=== PATIENT | female | born 1965 | race Caucasian/White ===

== ENCOUNTER 2017-09-19 14:10 | Emergency (ER) | payer OTHER ==
[~2017-09-19] VITALS: Ht 160 cm; Wt 113.0 kg
[~2017-09-19 14:10] MED LIST: CPR/500 PO; METR500T PO; WARF5TAB90 PO
[2017-09-19 14:12] VITALS: Ht 160 cm; Wt 113.0 kg
[2017-09-19] MEDS ORDERED: SODIUM CHLORIDE 0.9% 1000ML 1,000 ML IV STA (14:33)
[2017-09-19] MEDS ORDERED: PROCHLORPERAZINE 5 MG/ML 2 ML VIAL IV STA (14:33)
[2017-09-19] MEDS ORDERED: KETOROLAC TROMETHAMINE 30 MG/ML VIAL IV STA (14:33)
[2017-09-19] MEDS ORDERED: DiphenhydrAMINE HCL 50 MG/ML VIAL IV STA (14:33)
--- NOTE | 2017-09-19 14:38 | EMERGENCY ROOM VISIT NOTE ---
History Report prepared by Radah: Sandy Khoury Under the Supervision of: Rosalio KamO. 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 She reports waking up with the headache and it is gradually getting worse. She currently rates her pain a 10/10 in severity. She notes this is not the worse headache of her life. She notes the headache is localized to the right side and base of her head. She notes this migraine is mostly dull, achy, though also stabbing. She states "it feels like there is a spear stuck in my head." She notes that light and movement makes the pain worse. She notes that noise does not worsen the pain. She notes mild neck pain. She has a history of ocular migraines. She notes that she has about one migraine a month for at least 10 years. She notes her normal migraines start in her eyes and work backwards. She notes this migraine started in the back of her head and is moving forward. She states her normal migraines are a stabbing pain. She has a history of blood clots. Pt denies change in vision, fevers, chest pain, shortness of breath, nausea, vomiting, diarrhea, pain with urination, and melena. Patient denies hypertension. 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 Review of Systems See HPI for pertinent positives & negatives. A total of 10 systems reviewed and were otherwise negative. Past Medical & Surgical Medical Problems: (1) History of DVT (deep vein thrombosis) (2) History of pulmonary embolism (3) Migraine (4) Warfarin anticoagulation Family History Patient reports no known family medical history. Social History Smoking Status: Never Smoker Alcohol Use: none Drug Use: none Marital Status: Housing Status: lives with significant other Occupation Status: other Current/Historical Medications Scheduled PRN Sumatriptan Succinate (Imitrex), 50 MG PO PRN PRN for Migraine Allergies Coded Allergies: Iodinated Diagnostic Agents (Verified Allergy, Severe, RASH, SOB, 09/19/17 ) Witnessed reaction in CT lab 02/10/2014 Sulfamethoxazole w/Trimethoprim (Verified Allergy, Severe, ANAPHALACTIC SHOCK, 09/19/17) Codeine (Verified Allergy, Intermediate, HIVES; PT TOLERATES DILAUDID, ) Latex1 -Allergic Contact Dermititis (Verified Allergy, Mild, RASH, ) Tetanus Toxoid (Verified Adverse Reaction, Unknown, HARD LUMP AT INJECTION SITE, 09/19/17) Physical Exam Vital Signs Date Time Temp Pulse Resp B/P (MAP) Pulse Ox O2 Delivery O2 Flow Rate FiO2 09/19/17 16:10 36.7 54 16 145/93 98 09/19/17 15:50 54 16 145/93 98 Room Air 09/19/17 14:12 36.7 80 16 193/103 98 Room Air Physical Exam GENERAL: Laying down in bed, alert, well appearing, well nourished, mild distress, non-toxic. Holding posterior occiput. EYE EXAM: normal conjunctiva, PERRLA. Extraocular muscles intact. OROPHARYNX: no exudate, no erythema, lips, buccal mucosa, and tongue normal and mucous membranes are moist NECK: supple, no nuchal rigidity, no adenopathy, non-tender LUNGS: Clear to auscultation. Normal chest wall mechanics HEART: no murmurs, S1 normal and S2 normal ABDOMEN: abdomen soft, non-tender, normo-active bowel sounds, no masses, no rebound or guarding. BACK: Back is symmetrical on inspection and there is no deformity, no midline tenderness, no CVA tenderness. SKIN: no rashes and no bruising UPPER EXTREMITIES: upper extremities are grossly normal. LOWER EXTREMITIES: No pitting edema. NEURO EXAM: Normal sensorium, cranial nerves II-XII intact, normal speech, no weakness of arms, no weakness of legs. No drift. Finger to nose intact. Gross sensation intact. Rapid alternating movement of upper extremities in tact. Medical Decision & Procedures ER Provider Diagnostic Interpretation: Radiology results as stated below per my review and the radiologist's interpretation: HEAD WITHOUT CONTRAST (CT) CLINICAL HISTORY: 51 years-old Female presenting with severe FOOTE. TECHNIQUE: Multidetector CT imaging of the head was performed without the use of intravenous contrast. IV contrast: None. A dose lowering technique was used consistent with the principles of ALARA (as low as reasonably achievable). COMPARISON: None. CT DOSE (mGy.cm): The estimated cumulative dose is 537.48 mGy.cm. FINDINGS: Supervisor Propellant Charge Loading topogram: Unremarkable. Ventricles and sulci normal in size. Brain parenchyma normal in appearance with preserved pierce-white differentiation. No mass effect or midline shift. No hemorrhage or acute territorial infarct. No extra-axial fluid collection. Paranasal sinuses and mastoid air cells clear. Calvarium intact. IMPRESSION: 1. No acute intracranial abnormality. Electronically signed by: Jose Brock M.D. 09/19/2017 3:08 PM Dictated Date/Time: 09/19/2017 3:05 PM Laboratory Results 09/19/17 14:55 Red Blood Count 5.02, Mean Corpuscular Volume 94.0, Mean Corpuscular Hemoglobin 32.7, Mean Corpuscular Hemoglobin Concent 34.7, Mean Platelet Volume 10.0, Neutrophils (%) (Auto) 74.7, Lymphocytes (%) (Auto) 17.8, Monocytes (%) (Auto) 5.5, Eosinophils (%) (Auto) 1.7, Basophils (%) (Auto) 0.2, Neutrophils # (Auto) 6.51, Lymphocytes # (Auto) 1.55, Monocytes # (Auto) 0.48, Eosinophils # (Auto) 0.15, Basophils # (Auto) 0.02 09/19/17 14:55 Test 09/19/17 14:55 White Blood Count 8.72 K/uL (4.8-10.8) Red Blood Count 5.02 M/uL (4.2-5.4) Hemoglobin 16.4 g/dL (12.0-16.0) Hematocrit 47.2 % (37-47) Mean Corpuscular Volume 94.0 fL (80-100) Mean Corpuscular Hemoglobin 32.7 pg (25-34) Mean Corpuscular Hemoglobin Concent 34.7 g/dl (32-36) Platelet Count 319 K/uL (130-400) Mean Platelet Volume 10.0 fL (7.4-10.4) Neutrophils (%) (Auto) 74.7 % Lymphocytes (%) (Auto) 17.8 % Monocytes (%) (Auto) 5.5 % Eosinophils (%) (Auto) 1.7 % Basophils (%) (Auto) 0.2 % Neutrophils # (Auto) 6.51 K/uL (1.4-6.5) Lymphocytes # (Auto) 1.55 K/uL (1.2-3.4) Monocytes # (Auto) 0.48 K/uL (0.11-0.59) Eosinophils # (Auto) 0.15 K/uL (0-0.5) Basophils # (Auto) 0.02 K/uL (0-0.2) RDW Standard Deviation 43.9 fL (36.4-46.3) RDW Coefficient of Variation 12.8 % (11.5-14.5) Immature Granulocyte % (Auto) 0.1 % Immature Granulocyte # (Auto) 0.01 K/uL (0.00-0.02) Anion Gap 4.0 mmol/L (3-11) Est Creatinine Clear Calc Drug Dose 121.1 ml/min Estimated GFR () 119.0 Estimated GFR (Non- 102.7 BUN/Creatinine Ratio 15.6 (10-20) Calcium Level 8.8 mg/dl (8.5-10.1) Laboratory results per my review. Medications Administered Medications (Trade) Dose Ordered Sig/Zaynab Route Start Time Stop Time Status Last Admin Dose Admin Diphenhydramine HCl (Benadryl Inj) 50 mg NOW STAT IV 09/19/17 14:33 09/19/17 14:34 DC 09/19/17 14:45 50 MG Ketorolac Tromethamine (Toradol Inj) 30 mg NOW STAT IV 09/19/17 14:33 09/19/17 14:34 DC 09/19/17 14:45 30 MG Prochlorperazine Edisylate (Compazine Inj) 10 mg NOW STAT IV 09/19/17 14:33 09/19/17 14:34 DC 09/19/17 14:45 10 MG Sodium Chloride 1,000 ml @ 999 mls/hr Q1H1M STAT IV 09/19/17 14:33 09/19/17 15:33 DC 09/19/17 14:33 999 MLS/HR ED Course ED COURSE: Vital signs were reviewed and showed hypertensive The patients medical record was reviewed The above diagnostic studies were performed and reviewed. ED treatments and interventions as stated above. 1426: The patient was evaluated in room B12A. A complete history and physical examination was performed. 1433: Ordered Sodium Chloride 1,000 ml @ 999 mls/hr IV, Compazine 10 mg IV, Toradol 30 mg, and Benadryl 50 mg IV 1451 I reassessed the patient at this time. She is resting comfortably. 1525 I reassessed the patient at this time. She is resting comfortably. 1537: Upon reevaluation, the patient is feeling better, her headache is near relieved. I did offer LP and she declined. Risk of benefits were explained. She will follow up with her PCP. I discussed my findings with the patient and she understands and agrees with the treatment plan. Based on the patients age, coexisting illnesses, exam and lab findings the decision to treat as an outpatient was made. The patient remained stable while under my care. The patient appeared well at the time of discharge. Medical Decision Differential Diagnosis includes but is not limited to headache, tension headache , cluster headache, migraine, subarachnoid hemorrhage, meningitis, mass, central venous thrombus, concussion, trauma and epidural/subdural hemorrhage. Patient is a 51-year-old female who presents to ER for headache which started around 7 AM. It started to gradually worsened throughout the day. She has no focal deficit. It is located in the back of her head. She does have a history of migraines. No fevers. Neck stiffness. No signs meningitis or encephalitis on exam. No recent trauma. Patient is completely neurologically intact including cerebellar exam. She did walk without difficulty. CT head was performed and was completely negative. This was out of the 6 hour window. I explained this to the patient and she noted that this was a very bad headache. Recommended LP due to the her description of the headache but she declined. I explained at length the benefits and risks of not performing this. We're unable to perform a CTA due to her contrast allergy. Patient felt significantly better following the IV Benadryl, Toradol and Compazine. She was given fluids. I explained that this does not negate the possibility of a subarachnoid hemorrhage. She understood the risk and benefits. She was fairly hypertensive upon presentation I believe this to be secondary to her pain. Blood pressure did come down with treatment of her pain to 160 systolic. She was discharged to follow-up with her PCP and to return if anything worsens. Discussed with Pt concerning signs and symptoms to watch out for. Pt was instructed to follow up with their PCP and discussed with the patient their option to return to the ED at anytime for persistent or worsening symptoms. The appropriate anticipatory guidance and out-patient management, including indications for return to the emergency department, were explained at length to the patient and understood. Medication Reconcilliation Current Medication List: was personally reviewed by me Blood Pressure Screening Patient's blood pressure: Elevated blood pressure Blood pressure disposition: Referred to PCP Impression Primary Impression: Cephalalgia Additional Impression: Hypertension Scribe Attestation The scribe's documentation has been prepared under my direction and personally reviewed by me in its entirety. I confirm that the note above accurately reflects all work, treatment, procedures, and medical decision making performed by me. Departure Information Dispostion Home / Self-Care Forms HOME CARE DOCUMENTATION FORM, IMPORTANT VISIT INFORMATION Patient Instructions Headache Pain, My [facility] Additional Instructions Please follow up with your primary care doctor with in the next 24 hours. Any worsening of your symptoms, please return to the ED immediately. This includes any fevers greater than 100.4, stiff neck, weakness or numbness in arms or legs , worsening pain, chest pain, shortness breath, persistent nausea, vomiting, unable to eat or drink, or any other concerning signs or symptoms from your standpoint. You were given medications during this visit that will inhibit your ability to drive, operate machinery and work. Please do NOT drive, operate machinery, drink alcohol or work for the next 12hrs. You were found to have a blood pressure greater than 120 systolic over 90 diastolic. Due to the new Medicare guidelines, we are now recommending that you follow up with your primary care doctor in regards to this elevated blood pressure. Problem Qualifiers Primary Impression: Cephalalgia Headache type: unspecified Headache chronicity pattern: unspecified pattern Intractability: not intractable Qualified Codes: R51 - Headache Additional Impression: Hypertension Hypertension type: unspecified Qualified Codes: I10 - Essential (primary) hypertension
[2017-09-19] MEDS ORDERED: SUMA50TA15 PO (15:02)
[2017-09-19 15:06] LABS: BASO % 0.2 %; BASO ABS # 0.02 K/uL (0-0.2); EOS % 1.7 %; EOS ABS # 0.15 K/uL (0-0.5); HEMATOCRIT 47.2 % (37-47); HEMOGLOBIN 16.4 g/dL (12.0-16.0); IG# 0.01 K/uL (0.00-0.02); LYMPH % 17.8 %; LYMPH ABS # 1.55 K/uL (1.2-3.4); MEAN CORPUSCULAR HEMOGLOBIN 32.7 pg (25-34); MEAN CORPUSCULAR HGB CONC 34.7 g/dl (32-36); MONO % 5.5 %; MONO ABS # 0.48 K/uL (0.11-0.59); NEUT % 74.7 %; NEUT ABS # 6.51 K/uL (1.4-6.5); PLATELET COUNT 319 K/uL (130-400); RED CELL DISTRIBUTION WIDTH CV 12.8 % (11.5-14.5); RED CELL DISTRIBUTION WIDTH SD 43.9 fL (36.4-46.3); WHITE BLOOD COUNT 8.72 K/uL (4.8-10.8)
--- NOTE | 2017-09-19 15:09 | DIAGNOSTIC IMAGING REPORT ---
HEAD WITHOUT CONTRAST (CT) CLINICAL HISTORY: 51 years-old Female presenting with severe FOOTE. TECHNIQUE: Multidetector CT imaging of the head was performed without the use of intravenous contrast. IV contrast: None. A dose lowering technique was used consistent with the principles of ALARA (as low as reasonably achievable). COMPARISON: None. CT DOSE (mGy.cm): The estimated cumulative dose is 537.48 mGy.cm. FINDINGS: Web Developer topogram: Unremarkable. Ventricles and sulci normal in size. Brain parenchyma normal in appearance with preserved pierce-white differentiation. No mass effect or midline shift. No hemorrhage or acute territorial infarct. No extra-axial fluid collection. Paranasal sinuses and mastoid air cells clear. Calvarium intact. IMPRESSION: 1. No acute intracranial abnormality. Electronically signed by: Jose Brock M.D. 09/19/2017 3:08 PM Dictated Date/Time: 09/19/2017 3:05 PM
[2017-09-19 15:23] LABS: CALCIUM 8.8 mg/dl (8.5-10.1); CREATININE 0.68 mg/dl (0.60-1.20); POTASSIUM 3.7 mmol/L (3.5-5.1)
[2017-09-19 16:10] VITALS: BP 145/93; PULSE 54; TEMP 36.7; O2SAT 98
[2018-02-20] MEDS ORDERED: IBUP-1050 PO (23:59)
[2018-02-21] MEDS ORDERED: CEPH500C PO (01:50)
[2018-04-15] MEDS ORDERED: ACET-176 PO (07:54)
[2018-04-15] MEDS ORDERED: SUMA50TA15 PO (09:22)
[2018-04-15] MEDS ORDERED: DOXY-300 PO (11:57)
== END 2017-09-19 16:00 | disposition home or self-care (01) ==
LOC: C.EDB 14:11
DX: R51 Headache (principal); I10 Essential (primary) hypertension; Z86.711 Personal history of pulmonary embolism; Z86.718 Personal history of other venous thrombosis and embolism

== ENCOUNTER 2018-02-11 23:00 | Emergency (ER) | payer OTHER ==
[~2018-02-11] VITALS: Ht 160 cm; Wt 116.3 kg
[~2018-02-11 23:00] MED LIST changes: -CPR/500 PO; -METR500T PO; +SUMA50TA15 PO; -WARF5TAB90 PO
[2018-02-11 23:04] VITALS: TEMP 36.6; Ht 160 cm; Wt 116.3 kg
[2018-02-11] MEDS ORDERED: ASPI81TA28 PO (23:24)
[2018-02-12 00:30] VITALS: BP 154/94; PULSE 90; O2SAT 98
--- NOTE | 2018-02-12 00:32 | EMERGENCY ROOM VISIT NOTE ---
History First contact with patient: 23:07 Chief Complaint: LEG PAIN,LEG INJURY Stated Complaint: RIGHT LEG INJURY History of Present Illness The patient is a 52 year old female who presents to the Emergency Room via private vehicle with complaints of "right leg injury". The patient states that this past Friday she accidentally tripped and fell and a heavy powerpack struck her right lateral proximal ricci. She notes minimal pain but now she has swelling and bruising distally. She notes now the skin is oozing a yellowish clear fluid. She rates the pain as a 5/10. She notes no numbness or tingling. Review of Systems A complete 6-point Review of Systems was discussed with the patient, with pertinent positives and negatives listed in the History of Present Illness. All remaining Review of Systems questions can be considered negative unless otherwise specified. Past Medical/Surgical History Medical Problems: (1) History of DVT (deep vein thrombosis) (2) History of pulmonary embolism (3) Migraine (4) Warfarin anticoagulation Family History Patient reports no known family medical history. Social History Smoking Status: Never Smoker Alcohol Use: none Drug Use: none Marital Status: Housing Status: lives with significant other Occupation Status: other Current/Historical Medications Scheduled Aspirin (Aspirin Ec), 81 MG PO DAILY Scheduled PRN Sumatriptan Succinate (Imitrex), 50 MG PO PRN PRN for Migraine Physical Exam Vital Signs Date Time Temp Pulse Resp B/P (MAP) Pulse Ox O2 Delivery O2 Flow Rate FiO2 02/12/18 00:30 90 16 154/94 98 Room Air 02/11/18 23:55 94 18 168/111 97 Room Air 02/11/18 23:04 36.6 93 18 174/95 98 Room Air Physical Exam VITAL SIGNS - Vital signs and nursing notes were reviewed. Stable. Hypertensive. GENERAL -52-year-old female appearing her stated age who is in no acute distress. Communicates well with provider and answers questions appropriately. SKIN -the right lower extremity does exhibit edema, as well as some serous fluid leaking. There is no break in the integument acutely noted. There is a well-healed abrasion noted to the right proximal lateral calf. There is ecchymosis from the distal ricci extending into the foot. It is dark and purple in nature. EXTREMITIES - No clubbing or peripheral cyanosis. Pretibial edema is present bilaterally, right greater than left. She is neurovascularly intact in right lower extremity. No bony tenderness noted. Medical Decision & Procedures ER Provider Diagnostic Interpretation: Tibia and fibula radiographs is read by myself reveal a small radiopaque object in the right lateral calf. Bones appear intact, joint spacing appropriate, no fracture or dislocation. Ultrasound of the right lower extremity obtained and as per stat rad reveals no evidence for deep venous thrombosis involving the right lower extremity. No other abnormality identified. Medical Decision Patient was seen and evaluated as above in room A2. Review was performed of nursing notes and vital signs. After obtaining a thorough history and physical examination the above work up was performed. She presents to us today with right lower extremity swelling status post injury. I suspect that because she has been on her feet for the past few days for long periods of time and with her recent injury she is experiencing dependent edema. The serous drainage I suspect is because of the amount of pressure on the leg from the swelling from standing and venous insufficiency. There is no evidence of compartment syndrome on exam. The radiopaque substance found on the x-ray I suspect is chronic and the patient notes that this is indeed old. She had surgery to try to remove most of this and some of it was also removed during an MRI. This is not acute. The x-ray does not reveal any acute injury. Ultrasound negative for DVT. She was given an Tony wrap and is to use her compression stocking as well after the next few days past with the Tony wrap. She is to follow with the family doctor or return with worsening. She was incidentally noted to have hypertension here but does not have any chest pain or shortness of breath or strokelike symptoms. She is to monitor this and follow with the family doctor as soon as possible. The patient was educated upon management, had questions answered prior to discharge, and was discharged home in good condition. In the evaluation and treatment of this patient the following differential diagnoses were entertained: Fracture, dislocation, DVT, hematoma, compartment syndrome, among others. Impression Primary Impression: Leg pain, right Departure Information Dispostion Home / Self-Care Condition GOOD Referrals Ishaan Singleton M.D. (PCP) Patient Instructions My [facility] Additional Instructions You were seen in the emergency department for right leg swelling. At this time your x-ray does not show any fracture/broken bone and the ultrasound does not show any blood clot. Please elevate the right leg as much as possible. Please apply the Tony wrap daily, please be careful not to apply this to type. Please do this for the next few days. You may then progress to a compression stocking. Please call the family doctor to schedule follow-up for your leg swelling as well as your blood pressure. Please return with any new/concerning symptoms.
--- NOTE | 2018-02-12 06:49 | DIAGNOSTIC IMAGING REPORT ---
RIGHT LOWER EXTREMITY VENOUS DOPPLER CLINICAL HISTORY: RLE injury. Now edema, drainage, bruising, Hx DVT COMPARISON STUDY: Right lower extremity venous Doppler June 05, 2011. TECHNIQUE: Sonography of the deep venous system of the right lower extremity was performed. Compression and augmentation were evaluated. FINDINGS: The right common femoral, superficial femoral and popliteal veins were compressible. Augmentation was normal. Flow was shown within the deep calf vessels. IMPRESSION: No evidence of deep venous thrombus within the right lower extremity. Electronically signed by: Jose Manuel Hardy M.D. 02/12/2018 6:48 AM Dictated Date/Time: 02/12/2018 6:47 AM
--- NOTE | 2018-02-12 07:05 | DIAGNOSTIC IMAGING REPORT ---
R TIBIA/FIBULA 2 VIEWS ROUTINE CLINICAL HISTORY: RLE injury. Now edema, drainage, bruising. COMPARISON: None FINDINGS: No fracture of the right tibia or fibula is identified. There is no evidence of osteomyelitis. Note is made of 3 adjacent linear radiopaque densities within the anterior lateral subcutaneous tissues of the right lower leg which measure up to 3 mm. IMPRESSION: 1. No osseous abnormality of the right tibia or fibula. 2. 3 adjacent linear radiopaque densities within the anterolateral subcutaneous tissues of the right lower leg. These are nonspecific but may reflect tiny foreign bodies. Electronically signed by: Jose Manuel Hardy M.D. 02/12/2018 7:04 AM Dictated Date/Time: 02/12/2018 6:55 AM
== END 2018-02-12 00:50 | disposition home or self-care (01) ==
LOC: C.EDB 23:02 → C.EDA 02-12 00:50
DX: S80.811A Abrasion, right lower leg, initial encounter (principal); W18.09XA Striking against other object with subsequent fall, initial encounter; Z86.718 Personal history of other venous thrombosis and embolism; Z86.711 Personal history of pulmonary embolism; Z79.82 Long term (current) use of aspirin

== ENCOUNTER → 2018-05-07 | Outpatient (CLI) | payer OTHER ==
[~2018-05-07] MED LIST changes: +ACET-176 PO; +ASPI81TA28 PO; +DOXY-300 PO; +IBUP-1050 PO
--- NOTE | 2018-05-07 12:18 | DIAGNOSTIC IMAGING REPORT ---
R VENOUS DOPP LOWER EXT UNILAT CLINICAL HISTORY: 52 years-old Female presenting with LEG SWELLING. TECHNIQUE: Real-time grayscale and color and spectral Doppler ultrasound imaging of the veins of the right lower extremity was performed. Compression and augmentation were also utilized. COMPARISON: 02/11/2018. FINDINGS: RIGHT: Common femoral vein: Patent. Greater saphenous vein: Patent. Deep femoral vein: Patent. Femoral vein: Patent. Popliteal vein: Patent. Calf veins: Patent. Other: None. IMPRESSION: No evidence of deep venous thrombosis. Electronically signed by: Jose Brock M.D. 05/07/2018 12:17 PM Dictated Date/Time: 05/07/2018 12:16 PM
[2018-05-07 13:03] LABS: BASO % 0.4 %; BASO ABS # 0.03 K/uL (0-0.2); EOS % 2.5 %; EOS ABS # 0.17 K/uL (0-0.5); HEMATOCRIT 44.3 % (37-47); HEMOGLOBIN 14.6 g/dL (12.0-16.0); IG# 0.02 K/uL (0.00-0.02); LYMPH % 24.9 %; LYMPH ABS # 1.72 K/uL (1.2-3.4); MEAN CELL VOLUME 96.7 fL (80-100); MEAN CORPUSCULAR HEMOGLOBIN 31.9 pg (25-34); MEAN PLATELET VOLUME 10.5 fL (7.4-10.4); MONO % 6.5 %; MONO ABS # 0.45 K/uL (0.11-0.59); NEUT % 65.4 %; NEUT ABS # 4.53 K/uL (1.4-6.5); PLATELET COUNT 315 K/uL (130-400); RED CELL DISTRIBUTION WIDTH CV 13.6 % (11.5-14.5); RED CELL DISTRIBUTION WIDTH SD 48.1 fL (36.4-46.3); WHITE BLOOD COUNT 6.92 K/uL (4.8-10.8)
[2018-05-07 13:15] LABS: BLOOD UREA NITROGEN 11 mg/dl (7-18); CALCIUM 8.4 mg/dl (8.5-10.1); CARBON DIOXIDE 28 mmol/L (21-32); CREATININE 0.63 mg/dl (0.60-1.20); GLUCOSE 97 mg/dl (70-99); POTASSIUM 4.3 mmol/L (3.5-5.1); SODIUM 139 mmol/L (136-145)
[2018-05-07 13:16] LABS: HEMOGLOBIN A1C 5.6 % (4.5-5.6)
== END | disposition home or self-care (01) ==
LOC: C.ULTR 11:22
PROVIDERS: ATTEND Family Medicine
DX: M79.89 Other specified soft tissue disorders (principal); Z86.718 Personal history of other venous thrombosis and embolism

== ENCOUNTER 2025-06-22 13:53 | Inpatient (IN) ==
[2025-06-22 14:42] LABS: Hematocrit (blood only) 44.0 % (37.0-47.0); Hemoglobin 14.4 g/dl (12.0-16.0); Immature Granulocytes # (auto) 0.03 K/uL (0.01-0.20); Immature Granulocytes % (auto) 0.3 %; Mean Corpuscular Hemoglobin 31.5 pg (25.0-34.0); Mean Corpuscular Volume 96.3 fL (80.0-100.0); Platelet Count 273 K/uL (130-400); RDW Standard Deviation 46.8 fL (36.4-46.3); Red Blood Count 4.57 M/uL (4.20-5.40); White Blood Count 11.23 K/ul (4.8-10.8)
--- NOTE | 2025-06-22 14:42 | Emergency Department Note ---
Impression & Plan Substernal chest pain, Hypertension, uncontrolled, Subtherapeutic international normalized ratio (INR) Admit to the [facility] ED Provider Note NAME: ADRIANA VALDES AGE: 59 SEX: Female INFORMANT: Patient ED PROVIDER(S): Wanda Chen DO CHIEF COMPLAINT: Chest pressure PLAN: Disposition: admit to the [facility] MEDICAL DECISION MAKING: This is a 59-year-old female patient with history of hypertension who presents to the emergency department with increasing chest pressure. Patient described elevated blood pressure over the past couple of days thought to be secondary to injections of prednisone. This morning, the patient developed difficulty with speech, tremors and chest pressure around 9 AM this morning. The chest pressure worsened and EMS was called. They administered sublingual nitroglycerin which brought the chest pressure down. They also gave a dose of morphine and Zofran. on my exam of the patient, stated that the chest pressure had come back and she was rating it as a 4/10. She was still significantly hypertensive with blood pressure reading of 187/97. Patient was given another dose of sublingual nitro and had 1 inch of Nitropaste placed. The patient's EKG was unremarkable. She continued to have chest pressure and was given a dose of IV morphine in the emergency department. Portable chest x-ray was performed and was unremarkable. Laboratory studies revealed no leukocytosis or anemia. Glucose was 100. Troponin was negative. INR was subtherapeutic at 1.6. Patient describes not taking any antihypertensives at this time. She will require further inpatient care and monitoring. The case was discussed with the [facility] Hospitalist. Triage Nursing notes: reviewed and agree With them. Vital Signs: reviewed and remarkable for hypertension Additional History obtained from: is at the bedside Chronic Medical/Social Conditions affecting care: hypertension Differential Diagnosis: hypertensive urgency, cardiac ischemia, GERD, cardiac arrhythmia Diagnostics, independently interpreted by me: ECG: normal sinus rhythm at a rate of [address] segment elevation or signs of ischemia. There is no ectopy. Cardiac Monitoring: Normal sinus rhythm at a rate of 86 Imaging studies: portable chest x-ray: No acute pulmonary infiltrates or consolidation as per my independent interpretation HPI: 59 year old Female arrives for evaluation of Chest pressure. Patient has a history of hypertension and presents to the emergency department with increasing chest pressure since 9 AM this morning. Patient's describes that earlier today she seemed to have some difficulty with her speech and some tremors but this has subsided. PAST MEDICAL HISTORY: See Below, PAST SURGICAL HISTORY: See Below, SOCIAL HISTORY: See Below, HOME MEDICATIONS: see list ALLERGIES: see list VITALS: See Below PHYSICAL EXAMINATION: HEENT: Head - normocephalic and atraumatic. Pupils are equal, round, and reactive to light. Extraocular eye muscles are intact and sclera are anicteric. Nose - moist nasal mucosa without discharge. Mouth - moist buccal mucosa. Oropharynx is nonerythematous and there is no tonsillar exudate or edema noted. Neck: Supple; no JVD, nuchal rigidity, cervical lymphadenopathy. Heart: Regular rate and rhythm. There is a normal S1 and S2 with no murmurs, clicks, or gallops appreciated. Lungs: Clear to auscultation bilaterally with no wheezes, rales, or rhonchi. Abdomen: Soft, completely nontender, nondistended, with good bowel sounds. There are no palpable pulsatile masses or hepatosplenomegaly. There is no guarding, rigidity, or rebound noted. Extremities: No evidence of cyanosis, clubbing, or edema. There are easily palpable peripheral pulses. Neuro:The patient is awake and alert, oriented to day, time, and place. Muscle strength is 5/5 in all 4 extremities. The patient has equal tube handler strength and equal pedal push and pull. There are no cerebellar signs. Cranial nerves II through XII are grossly intact. Emergency department course: Patient was evaluated in room A-4-B. A complete history and physical was performed. An order was placed for continuous cardiac monitoring. The patient was in a normal sinus rhythm at a rate of 86. Twelve- lead EKG was obtained as described above. Portable chest x-ray was performed. The patient was given a dose of sublingual nitro and had Nitropaste placed in an effort to treat her chest pressure and control her blood pressure. Patient's chest pressure continued. She was given a dose of IV morphine. Blood pressure did start to come down throughout the stay in the emergency department. I discussed the case with the [facility] Hospitalist and they will evaluate for further inpatient care. Past Med/Surg History Problem List (Updated 06/23/25 @ 20:25 by Wanda A Botti, DO) Subtherapeutic international normalized ratio (INR) (Acute) Hypertension, uncontrolled (Acute) Substernal chest pain (Acute) Chest pressure Partial tear of right rotator cuff Tendinopathy of right rotator cuff Rheumatoid arthritis Fibromyalgia Celiac disease Hypothyroidism Prediabetes Mild mitral regurgitation Arthritis of both knees Thoracic back pain Lipodermatosclerosis of right lower extremity Morbid obesity Chronic venous insufficiency Obesity (Chronic) Disordered sleep Cervical spine disease Medial meniscus tear Anticoagulant long-term use Hypertension Vitamin D deficiency Acute superficial venous thrombosis of right lower extremity (09/2021) 09/2021, f/u Michele Mckeon On Coumadin Venous reflux Tinnitus of both ears Varicose veins of legs Asthma uses an inhaler prn Chronic rhinitis Migraine History of pulmonary embolism (~2010) Hx of recurrent right lower extremity thrombophlebitis and hx of PE (2010) per heme records Follows with Michele Mckeon On Coumadin in 2010 x 6 months and then d/c'ed- superficial venous thrombosis 09/2021- restarted on Coumadin History of DVT (deep vein thrombosis) (~2010) "2010"; f/u Michele Mckeon Medical History Dysphagia Neck mass Dysphonia Esophageal dilatation Vertigo History of anesthesia reaction History of COVID-19 Pneumonia due to COVID-19 virus Lyme disease Surgical History S/P excision of lipoma (03/2022) Hx of colonoscopy Hx of endoscopic retrograde cholangiopancreatography Hx of laparoscopy H/O ovarian cystectomy S/P cholecystectomy Family History Mother Coronary heart disease Hypertension Father Diabetes Brother Diabetes Denies family history of Ovarian cancer Prostate cancer Myocardial infarction Breast cancer Lung cancer Colorectal cancer Social History Smoking Status: Never smoker Second Hand Exposure: No; Do You Dip or Chew Tobacco: No; Hx Alcohol Use: Yes Alcohol type: hard liquor Alcohol Intake Frequency: Monthly or Less Hx Substance Use: No Preferred Language: Montenegrin Communication Ability: Effective Visual Impairment: Limited Hearing Ability: Normal Cassandra Developer Required: No Beliefs That Will Affect Care: None marital status: Single Current Living Situation: Significant Other Current Living Situation Comment: Lives with significant other. 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; Feels Safe at Home: Yes Childhood Exposure to Second-Hand Smoke: No Diet: regular Diet Comment: regular caffeine: No during the past year weight has: remained stable Dental Care, Regularly: No Physical Activity Frequency: Does not Exercise Seatbelt Use: sometimes Sunscreen Use: Yes Assistive Devices: Cane and Scooter/Electric Scooter Allergies Allergies Allergy/AdvReac Type Severity Reaction Status Date / Time Iodinated Contrast Media Allergy Severe RASH, SOB Verified 06/15/25 16:41 sulfamethoxazole Allergy Severe ANAPHALACTIC Verified 06/15/25 16:41 SHOCK trimethoprim Allergy Severe ANAPHALACTIC Verified 06/15/25 16:41 SHOCK codeine Allergy Intermediate HIVES; PT Verified 06/15/25 16:41 TOLERATES DILAUDID latex Allergy Mild RASH Verified 06/15/25 16:41 sumatriptan [From Imitrex] Allergy Mild scratchy Verified 06/15/25 16:41 throat lisinopril AdvReac Mild Cough Verified 06/15/25 16:41 tetanus toxoid, adsorbed AdvReac Unknown HARD LUMP Verified 06/15/25 16:41 AT INJECTION SITE losartan AdvReac Severe Dizziness Uncoded 06/15/25 16:41 Home Meds Home Medications Medication Instructions Recorded Confirmed multivitamin 1 tab PO QAM 08/09/22 06/22/25 potassium chloride 10 mEq 10 meq PO .every other day PRN 10/01/23 06/22/25 capsule,extended release WATER RETENTION hydroxychloroquine 200 mg tablet 400 mg PO DAILY 12/07/24 06/22/25 (Plaquenil) warfarin 5 mg tablet 5 mg PO DIRECTED 06/22/25 06/22/25 warfarin 7.5 mg tablet 7.5 mg PO DIRECTED 06/22/25 06/22/25 Previous Rx's Medication Instructions Recorded cholecalciferol (vitamin D3) 50 5,000 mcg (100 x 50 mcg (2,000 12/04/23 mcg (2,000 unit) capsule unit)) PO DAILY #30 caps albuterol sulfate 2.5 mg/3 mL 2.5 mg (3 mL) inhalation QAM PRN 10/15/24 (0.083 %) solution for nebulization Shortness Of Breath #90 mL albuterol sulfate 90 mcg/actuation 1 - 2 inh inhalation UD PRN 07/06/24 aerosol inhaler (Ventolin HFA) Shortness Of Breath #8.5 grams furosemide 20 mg tablet 20 mg PO DAILY PRN Fluid Retention 12/23/24 #90 tabs aspirin 81 mg tablet,delayed 81 mg PO DAILY #30 tabs 06/23/25 release atorvastatin 20 mg tablet 20 mg PO HS #30 tabs 06/23/25 nifedipine 30 mg tablet,extended 30 mg PO QPM #30 tabs 06/23/25 release 24 hr (Procardia XL) Results & Data (ED) Vital Signs Vital Signs - 24 hr 06/22/25 14:10 06/22/25 14:12 06/22/25 14:12 Temperature 36.6 C Temperature Source Oral Pulse Rate 88 86 Respiratory Rate 23 Respiratory Effort / Characteristics Non-Labored Spontaneous Respiratory Depth Normal Blood Pressure 187/97 H Blood Pressure Mean 127 Blood Pressure Position Semi-fowlers Pulse Oximetry 97 97 Oxygen Delivery Method Room Air Room Air Sepsis Recent Fever Within 48 Hours No Sepsis New/Unexplained Change in Mental Status N/A Sepsis Action Taken by Nursing No Action Required 06/22/25 14:34 Temperature Temperature Source Pulse Rate Respiratory Rate Respiratory Effort / Characteristics Respiratory Depth Blood Pressure Blood Pressure Mean Blood Pressure Position Pulse Oximetry 97 Oxygen Delivery Method Room Air Sepsis Recent Fever Within 48 Hours Sepsis New/Unexplained Change in Mental Status Sepsis Action Taken by Nursing Laboratory Data 06/23/25 08:11 06/23/25 08:11 Lab Results 06/22/25 Range/Units 14:18 WBC 11.23 H (4.8-10.8) K/ul RBC 4.57 (4.20-5.40) M/uL Hgb 14.4 (12.0-16.0) g/dl Hct 44.0 (37.0-47.0) % MCV 96.3 (80.0-100.0) fL MCH 31.5 (25.0-34.0) pg MCHC 32.7 (32.0-36.0) g/dL RDW Std Deviation 46.8 H (36.4-46.3) fL RDW Coeff of Ramon 13.1 (11.5-14.5) % Plt Count 273 (130-400) K/uL MPV 9.5 (9.4-12.4) fL Immature Gran % (Auto) 0.3 % Neut % (Auto) 74.4 % Lymph % (Auto) 16.4 % Mclennan % (Auto) 7.4 % Eos % (Auto) 1.1 % Baso % (Auto) 0.4 % Neut # (Auto) 8.36 H (1.40-6.50) K/uL Lymph # (Auto) 1.84 (1.20-3.40) K/uL Mclennan # (Auto) 0.83 H (0.11-0.59) K/uL Eos # (Auto) 0.12 (0.00-0.50) K/uL Baso # (Auto) 0.05 (0.00-0.20) K/uL Immature Gran # (Auto) 0.03 (0.01-0.20) K/uL PT 16.0 H (9.0-12.0) Seconds INR 1.6 H (0.9-1.1) Sodium 136 (136-145) mmol/L Potassium 3.7 (3.5-5.1) mmol/L Chloride 102 (98-107) mmol/L Carbon Dioxide 27 (21-32) mmol/L Anion Gap 7 (3-11) BUN 17 (6-23) mg/dl Creatinine 0.78 (0.6-1.2) mg/dl Est Cr Clr Drug Dosing 104.7 ml/min eGFR 88.53 BUN/Creatinine Ratio 21.8 H (10-20) Glucose 100 H (70-99(Fasting)) mg/dl Calcium 8.8 (8.6-10.3) mg/dl Total Bilirubin 0.5 (0.2-1.0) mg/dl AST 17 (13-39) U/L ALT 21 (7-52) U/L Alkaline Phosphatase 77 (34-104) U/L Troponin I High Sens 4.6 (0-14) pg/ml Total Protein 7.0 (6.0-8.3) gm/dl Albumin 3.7 (3.4-5.0) gm/dl Globulin 3.3 (2.5-4.0) gm/dl Albumin/Globulin Ratio 1.1 (0.9-2) Lipase 21 (11-82) U/L Administered Medications Discontinued Medications Aspirin (Aspirin 81 Mg Ectab) 81 mg PO DAILY [facility] Stop: 07/23/25 08:59 Last Admin: 06/23/25 07:35 Dose: 81 mg Documented By: WILLIAM Aspirin (Aspirin 81 Mg Ectab) 81 mg PO ONE ONE Stop: 06/22/25 18:16 Last Admin: 06/22/25 18:20 Dose: 81 mg Documented By: STEFFI Hydroxychloroquine Sulfate (Hydroxychloroquine Sulfate 200 Mg Tab) 400 mg PO DAILY JOVI Stop: 07/23/25 08:59 Last Admin: 06/23/25 07:35 Dose: 400 mg Documented By: WILLIAM Morphine Sulfate (Morphine Sulfate 2 Mg/Ml Carp) 2 mg IV NOW STA Stop: 06/22/25 15:35 Last Admin: 06/22/25 16:09 Dose: 2 mg Documented By: STEFFI Nifedipine (Nifedipine Extended Rel 30 Mg Tabcr) 30 mg PO 1800 [facility] Stop: 06/22/25 19:00 Last Admin: 06/22/25 18:21 Dose: 30 mg Documented By: STEFFI Nitroglycerin (Nitroglycerin Sl 0.4 Mg/Tab Tab) 0.4 mg SL NOW STA Stop: 06/22/25 14:37 Last Admin: 06/22/25 14:46 Dose: 0.4 mg Documented By: SURESH Nitroglycerin (Nitroglycerin 2% Ointment 30gm Tube) 1 inch EXT NOW ONE Stop: 06/22/25 14:37 Last Admin: 06/22/25 14:46 Dose: 1 inch Documented By: QGV Warfarin Sodium (Warfarin Sod 5 Mg Tab) 5 mg PO SuMoTuThFr@1600 [facility] Stop: 07/22/25 23:44 Last Admin: 06/23/25 17:22 Dose: 5 mg Documented By: Admin: 06/23/25 00:21 Dose: Not Given Documented By: BRIDGER Discharge Plan Visit Data Chief Complaint: Chest Pain Stated Complaint: CHEST PAIN ED Provider: Wanda Chen Discharge Problem: Substernal chest pain, Hypertension, uncontrolled, Subtherapeutic international normalized ratio (INR) Patient Disposition: Admitted As Inpatient Condition: Serious Discharge Instructions Interventions: ED Discharge Assessment Last Done: 06/22/25 21:59
--- NOTE | 2025-06-22 14:44 | XRay Report ---
XR chest 1V portable CLINICAL HISTORY: Chest pain, nonspecific COMPARISON STUDY: 01/28/2025 FINDINGS: Heart size and pulmonary vasculature are normal. No consolidation or pleural effusion. No p neumothorax. IMPRESSION: No acute findings. ACT 112: Negative or not required by law. Electronically signed by: Diony Barfield M.D. 06/22/2025 2:43 PM
[2025-06-22] MEDS: NITROGLYCERIN 2% OINTMENT 30GM TUBE EXT ONE (14:46)
[2025-06-22] MEDS: NITROGLYCERIN SL 0.4 MG/TAB TAB SL STA (14:46)
[2025-06-22 15:01] LABS: Alanine Aminotransferase 21.0 U/L (7-52); Albumin Globulin Ratio 1.1 (0.9-2); Albumin Level 3.7 gm/dl (3.4-5.0); Alkaline Phosphatase 77.0 U/L (34-104); Anion Gap 7.0 (3-11); Bilirubin,Total 0.5 mg/dl (0.2-1.0); Blood Urea Nitrogen 17.0 mg/dl (6-23); Calcium 8.8 mg/dl (8.6-10.3); Carbon Dioxide 27.0 mmol/L (21-32); Chloride 102.0 mmol/L (98-107); Creatinine Clr Calc Pharmacy 104.7 ml/min; Globulin 3.3 gm/dl (2.5-4.0); Glucose 100.0 mg/dl (70-99(Fasting)); Lipase 21.0 U/L (11-82); Potassium 3.7 mmol/L (3.5-5.1); Sodium 136.0 mmol/L (136-145); Total Protein 7.0 gm/dl (6.0-8.3)
[2025-06-22 15:29] LABS: INR 1.6 (0.9-1.1); Prothrombin Time 16.0 Seconds (9.0-12.0)
[2025-06-22] MEDS: MoRPHine SULFATE 2 MG/ML CARP IV STA (16:09)
--- NOTE | 2025-06-22 17:56 | History & Physical Report ---
Date of Service June 22, 2025 Assessment & Plan (1) Hypothyroidism: (2) Obesity: (3) Chest pressure: Plan 59 yr old F with PMHx of HTN, RA, chronic steroid use (currently on hold), h/o DVT / PE presents to the hospital for the evaluation of chest pressure. #Chest pressure #Uncontrolled BP - admit to PCU with tele - check ECHO - cont nitro paste for now - initial trop neg, EKG unremarkable - trend trop, prn EKG - prn morphine, supplemental oxygen, SL nitro - start aspirin - check lipid panel, hga1c - start procardia for BP control #Tinnitus - will get CT head w/o contrast - pt has severe contrast dye allergy even with prep she was symptomatic - ENT follow up as outpatient #RA - cont hydroxychloroquine - currently off of prednisone #h/o DVT / PE - on warfarin - INR 1.6 this afternoon, will cont current dose of warfarin, increase dose tomorrow if INR still subtherapeutic #Code status: full code #Dispo: admit to PCU History of Present Illness Chief Complaint: Chest pain Primary Care Provider: Jesusita Clinton DO 59 yr old F with PMHx of HTN, RA, chronic steroid use (currently on hold), h/o DVT / PE presents to the hospital for the evaluation of chest pressure. She has been having high blood pressure issues for couple weeks where her BP is > 170s / 100s. She also had few falls recently as well without head trauma. She was evaluated by her PCP and she was taking lasix continuously instead of PRN. Today, she noticed that she was chest pressure as if a horse is standing on her chest. This pressure was exacerbated by exertion but not by deep breaths. She had no other associated symptoms. Prior to chest pressure today, she has been experiencing ringing in her left ear that has been increasing in frequency and intensity. She also notes muffled hearing in the left ear that improves with upright position. She has received morphine and was placed on nitropaste with improvement of her symptoms as well as her BP. Allergies Allergy/AdvReac Type Severity Reaction Status Date / Time Iodinated Contrast Media Allergy Severe RASH, SOB Verified 06/15/25 16:41 sulfamethoxazole Allergy Severe ANAPHALACTIC Verified 06/15/25 16:41 SHOCK trimethoprim Allergy Severe ANAPHALACTIC Verified 06/15/25 16:41 SHOCK codeine Allergy Intermediate HIVES; PT Verified 06/15/25 16:41 TOLERATES DILAUDID latex Allergy Mild RASH Verified 06/15/25 16:41 sumatriptan [From Imitrex] Allergy Mild scratchy Verified 06/15/25 16:41 throat lisinopril AdvReac Mild Cough Verified 06/15/25 16:41 tetanus toxoid, adsorbed AdvReac Unknown HARD LUMP Verified 06/15/25 16:41 AT INJECTION SITE losartan AdvReac Severe Dizziness Uncoded 06/15/25 16:41 Home Medications Medication Instructions Recorded Confirmed Type multivitamin 1 tab PO QAM 08/09/22 06/22/25 History potassium chloride 10 mEq 10 meq PO .every other day PRN 10/01/23 06/22/25 History capsule,extended release WATER RETENTION cholecalciferol (vitamin D3) 50 5,000 mcg (100 x 50 mcg (2,000 12/04/23 06/22/25 Rx mcg (2,000 unit) capsule unit)) PO DAILY #30 caps albuterol sulfate 2.5 mg/3 mL 2.5 mg (3 mL) inhalation QAM PRN 07/06/24 06/22/25 Rx (0.083 %) solution for nebulization Shortness Of Breath #90 mL albuterol sulfate 90 mcg/actuation 1 - 2 inh inhalation UD PRN 07/06/24 06/22/25 Rx aerosol inhaler (Ventolin HFA) Shortness Of Breath #8.5 grams hydroxychloroquine 200 mg tablet 400 mg PO DAILY 12/07/24 06/22/25 History (Plaquenil) furosemide 20 mg tablet 20 mg PO DAILY PRN Fluid Retention 12/23/24 06/22/25 Rx #90 tabs warfarin 5 mg tablet 5 mg PO DIRECTED 06/22/25 06/22/25 History warfarin 7.5 mg tablet 7.5 mg PO DIRECTED 06/22/25 06/22/25 History Past Med/Surg History Problem List (Updated 06/22/25 @ 18:03 by Belinda Summers MD) Chest pressure Partial tear of right rotator cuff Tendinopathy of right rotator cuff Rheumatoid arthritis Fibromyalgia Celiac disease Hypothyroidism Prediabetes Mild mitral regurgitation Arthritis of both knees Thoracic back pain Lipodermatosclerosis of right lower extremity Morbid obesity Chronic venous insufficiency Obesity (Chronic) Disordered sleep Cervical spine disease Medial meniscus tear Anticoagulant long-term use Hypertension Vitamin D deficiency Acute superficial venous thrombosis of right lower extremity (09/2021) 09/2021, f/u Michele Mckeon On Coumadin Venous reflux Tinnitus of both ears Varicose veins of legs Asthma uses an inhaler prn Chronic rhinitis Migraine History of pulmonary embolism (~2010) Hx of recurrent right lower extremity thrombophlebitis and hx of PE (2010) per heme records Follows with Michele Mckeon On Coumadin in 2010 x 6 months and then d/c'ed- superficial venous thrombosis 09/2021- restarted on Coumadin History of DVT (deep vein thrombosis) (~2010) "2010"; f/u Michele Mckeon Medical History Dysphagia Neck mass Dysphonia Esophageal dilatation Vertigo History of anesthesia reaction History of COVID-19 Pneumonia due to COVID-19 virus Lyme disease Surgical History S/P excision of lipoma (03/2022) Hx of colonoscopy Hx of endoscopic retrograde cholangiopancreatography Hx of laparoscopy H/O ovarian cystectomy S/P cholecystectomy Family History Mother Coronary heart disease Hypertension Father Diabetes Brother Diabetes Denies family history of Ovarian cancer Prostate cancer Myocardial infarction Breast cancer Lung cancer Colorectal cancer Social History Smoking Status: Never smoker Second Hand Exposure: No; Do You Dip or Chew Tobacco: No; Hx Alcohol Use: Yes Alcohol type: beer Alcohol Intake Frequency: Monthly or Less Hx Substance Use: No Preferred Language: Tunisian Communication Ability: Effective Visual Impairment: Limited Hearing Ability: Normal Test Consultant Required: No Beliefs That Will Affect Care: None marital status: Single Current Living Situation: Significant Other Current Living Situation Comment: Lives with significant other. 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 Physical Exam Physical Exam: Gen: no acute distress, lying in bed comfortable Body habitus: obese HEENT: NC/AT, MMM Lungs: nonlabored breathing, CTAB CVS: s1s2nl, RRR Abd: nl bowel sounds, soft, NT / ND : no reyes Ext: no edema Neuro: AAOx3 Psych: calm, cooperative Results & Data Results & Data Vital Signs (Past 12 Hours) Vital Signs Temp Pulse Pulse Resp BP BP Pulse Ox 06/22/25 17:30 85 24 159/90 H 97 06/22/25 17:09 87 22 144/78 H 98 06/22/25 16:30 120/82 06/22/25 16:30 73 14 96 06/22/25 16:00 81 21 133/75 96 06/22/25 15:30 80 18 133/77 97 06/22/25 15:11 85 14 132/80 96 06/22/25 14:34 97 06/22/25 14:12 97 06/22/25 14:12 36.6 C 86 23 187/97 H 97 06/22/25 14:10 88 O2 Del Method 06/22/25 17:30 06/22/25 17:09 06/22/25 16:30 06/22/25 16:30 Room Air 06/22/25 16:00 Room Air 06/22/25 15:30 Room Air 06/22/25 15:11 06/22/25 14:34 Room Air 06/22/25 14:12 Room Air 06/22/25 14:12 Room Air 06/22/25 14:10 PG Care Time/CCT Total # of Minutes Spent Total Time Spent with Patient: Total time spent is greater than 50% in coordination of care (as documented) at patient's floor/unit and/or counseling patient: Coding Level of Care Code 66774 INT INP/OBS CARE 3/75MIN Diagnoses Hypothyroidism E03.9 Obesity E66.9 Chest pressure R07.89
[2025-06-22] MEDS ORDERED: NITROGLYCERIN SL 0.4 MG/TAB TAB SL PRN (18:05)
[2025-06-22] MEDS ORDERED: MoRPHine SULFATE 2 MG/ML CARP IV PRN (18:05)
--- NOTE | 2025-06-22 18:11 | CT Scan Report ---
Clinical History: Tinnitus. Technique: Axial computed tomography images were obtained of the brain from the vertex to the skull base without intravenous contrast. Findings: There is no sign of intracranial hemorrhage. There is normal pierce-white matter differentiation with no sign of acute or old infarction. No midline shift or other form of herniation is identified. There is no hydrocephalus. No obvious mass lesion is seen on this noncontrast examination. The visualized portions of the orbits and paranasal sinuses appear unremarkable. The mastoid air cells appear clear Impression: Unremarkable noncontrast CT of the brain Electronically signed by Hammad Brewer 06-22-2025 6:11 PM
[2025-06-22] MEDS: ASPIRIN 81 MG ECTAB PO ONE (18:20)
[2025-06-22] MEDS: NIFEdipine EXTENDED REL 30 MG TABCR PO SCH (18:21)
--- NOTE | 2025-06-22 19:11 | Electrocardiogram Report ---
Test Reason : Blood Pressure : */* mmHG Vent. Rate : 95 BPM Atrial Rate : 95 BPM P-R Int : 162 ms QRS Dur : 74 ms QT Int : 368 ms P-R-T Axes : 39 -19 13 degrees QTcB Int : 462 ms Normal sinus rhythm Minimal voltage criteria for LVH, may be normal variant Borderline ECG When compared with ECG of 17-Aug-2023 13:55, No significant change was found Confirmed by Cory Kendrick ([id number]) on 06/22/2025 7:10:55 PM Referred By: Confirmed By: Cory Kendrick
[2025-06-22] MEDS ORDERED: ALBUTEROL 0.083% NEBU SOLN 3 ML VIAL INH PRN (22:41)
[2025-06-22] MEDS ORDERED: MELATONIN 3 MG TAB PO PRN (22:41)
[2025-06-22] MEDS ORDERED: POLYETHYLENE (MIRALAX) 17 GM PACK PO PRN (22:41)
[2025-06-22] MEDS ORDERED: ONDANSETRON INJ 2 MG/ML 2 ML VIAL IV PRN (22:41)
[2025-06-22] MEDS ORDERED: ACETAMINOPHEN 325 MG TAB PO PRN (22:41)
[2025-06-22] MEDS ORDERED: WARFARIN SOD 5 MG TAB PO SCH (23:45)
[2025-06-23] MEDS: WARFARIN SOD 5 MG TAB PO SCH (00:21)
[2025-06-23 07:06] VITALS: O2SAT 97
[2025-06-23] MEDS: HYDROXYCHLOROQUINE SULFATE 200 MG TAB PO SCH (07:35)
[2025-06-23] MEDS: ASPIRIN 81 MG ECTAB PO SCH (07:35)
[2025-06-23 08:31] LABS: Hematocrit (blood only) 41.8 % (37.0-47.0); Hemoglobin 13.7 g/dl (12.0-16.0); Mean Corpuscular Hemoglobin 31.8 pg (25.0-34.0); Mean Corpuscular Volume 97.0 fL (80.0-100.0); Platelet Count 243 K/uL (130-400); RDW Standard Deviation 47.2 fL (36.4-46.3); Red Blood Count 4.31 M/uL (4.20-5.40); White Blood Count 8.00 K/ul (4.8-10.8)
[2025-06-23 08:50] LABS: Anion Gap 5.0 (3-11); Blood Urea Nitrogen 13.0 mg/dl (6-23); Calcium 8.7 mg/dl (8.6-10.3); Carbon Dioxide 29.0 mmol/L (21-32); Chloride 103.0 mmol/L (98-107); Cholesterol 171.0 mg/dl (0-200); Creatinine Clr Calc Pharmacy 110.9 ml/min; Glucose 143.0 mg/dl (70-99(Fasting)); HDL Cholesterol 52.0 mg/dl; Magnesium 1.9 mg/dl (1.7-2.4); Potassium 3.7 mmol/L (3.5-5.1); Sodium 137.0 mmol/L (136-145); Triglycerides 51.0 mg/dl (0-150)
[2025-06-23 08:56] LABS: Hemoglobin A1C 5.9 % (4.5-5.6)
[2025-06-23 09:04] LABS: INR 1.8 (0.9-1.1); Prothrombin Time 18.1 Seconds (9.0-12.0)
[2025-06-23 10:56] VITALS: BP 134/83; PULSE 75; RESP 20; TEMP 97.5
--- NOTE | 2025-06-23 12:34 | XCELERA ---
[id number]
--- NOTE | 2025-06-23 16:34 | Discharge Summary ---
Discharge Summary Date of Service June 23, 2025 Principal Dx & Hospital Course #1 = Principal Diagnosis (1) Hypothyroidism: (2) Obesity: (3) Chest pressure: Plan 59 yr old F with PMHx of HTN, RA, chronic steroid use (currently on hold), h/o DVT / PE presents to the hospital for the evaluation of chest pressure. Resolved once BP was controlled with Procardia XL 30mg. See below for management details. #Chest pressure - resolved #Uncontrolled BP - now controlled - admit to PCU with tele - ECHO (06/23/25): LV systolic fn nl, EF 50-55%, grade I diastolic dysfunction - initial trop neg, EKG unremarkable - trop trended flat - BP improved with procardia XL 30mg nightly (pt stated that she tolerated well) - lipid panel reviewed: T cholesterol: 171, LDL: 109, HDL 52 - 10 yr ASCVD risk: 11.9%, started on lipitor 20mg once a day - aspirin 81mg daily #Tinnitus - CT head w/o contrast unremarkable - pt has severe contrast dye allergy, even with prep she was symptomatic - ENT follow up as outpatient #RA - cont hydroxychloroquine - currently off of prednisone , outpatient follow up #Pre-diabetes - A1c: 5.9 - outpatient follow up - lifestyle modification #h/o DVT / PE - on warfarin - INR 1.6 this afternoon, will cont current dose of warfarin, increase dose tomorrow if INR still subtherapeutic #Code status: full code #Dispo: d/c home Admission HPI Per Admitting Provider 59 yr old F with PMHx of HTN, RA, chronic steroid use (currently on hold), h/o DVT / PE presents to the hospital for the evaluation of chest pressure. She has been having high blood pressure issues for couple weeks where her BP is > 170s / 100s. She also had few falls recently as well without head trauma. She was evaluated by her PCP and she was taking lasix continuously instead of PRN. Today, she noticed that she was chest pressure as if a horse is standing on her chest. This pressure was exacerbated by exertion but not by deep breaths. She had no other associated symptoms. Prior to chest pressure today, she has been experiencing ringing in her left ear that has been increasing in frequency and intensity. She also notes muffled hearing in the left ear that improves with upright position. She has received morphine and was placed on nitropaste with improvement of her symptoms as well as her BP. Discharge Exam Gen: no acute distress, lying in bed comfortable Body habitus: obese HEENT: NC/AT, MMM Lungs: nonlabored breathing, CTAB CVS: s1s2nl, RRR Abd: nl bowel sounds, soft, NT / ND : no reyes Ext: no edema Neuro: AAOx3 Psych: calm, cooperative Discharge Plan Discharge Items Patient Disposition: Home - Self-Care Reason For Visit: CHEST PAIN Discharge Diagnosis: chest pain Activity: Resume your previous activity Non-emergency contact: Primary Care Provider Call non-emergency contact if: you have any medication questions, your symptoms worsen and your pain is not controlled Follow-up/Referrals: [facility] [Provider Group] [facility] [Provider Group] (if ringing in the ear is persisting ) Jesusita Clinton DO [Primary Care Provider] - Diet: Heart Healthy Addtl Attending Provider Instructions: You were admitted to the hospital for the evaluation of high blood pressure and chest pressure. Your symptoms improved with adequate blood pressure control. Please note that you were started on new medications to help control blood pressure. Continue to monitor blood pressure at home. Due to moderate risk of cardiovascular disease, you were also stated on cholesterol medication. You will need an outpatient sleep study that will need to get be ordered by your primary care doctor. Please note that you are pre-diabetic. Your Hgb A1c is 5.9. You will need to discuss this with your primary doctor and consider starting metformin. You could benefit from a stress test as well and this can be done as outpatient. You are medically stable for discharge. You will need to follow up with your primary care doctor in about 7 to 10 days. It was a pleasure being a part of your medical care team during your stay at [facility]. Pending Studies at Discharge: No Stand-Alone Forms: My [facility], Smoking Cessation Medications and DC Order Prescriptions: New nifedipine [Procardia XL] 30 mg Tablet Extended Release 24hr 30 mg PO QPM Qty: 30 0RF atorvastatin 20 mg tablet 20 mg PO HS Qty: 30 0RF aspirin 81 mg Tablet,Delayed Release (Dr/Ec) 81 mg PO DAILY Qty: 30 0RF Continued cholecalciferol (vitamin D3) 50 mcg (2,000 unit) capsule 5,000 mcg PO DAILY Qty: 30 0RF albuterol sulfate [Ventolin HFA] 90 mcg/actuation HFA aerosol inhaler 1 - 2 inh inhalation UD PRN (Reason: Shortness Of Breath) Qty: 8.5 1RF Rx Instructions: inhale 1 to 2 puffs every 4 to 6 hours as needed albuterol sulfate 2.5 mg /3 mL (0.083 %) solution for nebulization 2.5 mg inhalation QAM PRN (Reason: Shortness Of Breath) Qty: 90 1RF furosemide 20 mg tablet 20 mg PO DAILY PRN (Reason: Fluid Retention) Qty: 90 3RF potassium chloride 10 mEq capsule, extended release 10 meq PO .every other day PRN (Reason: WATER RETENTION) Hold Instructions: Home Medication placed on hold at Doctor's office hydroxychloroquine [Plaquenil] 200 mg tablet 400 mg PO DAILY multivitamin Tablet 1 tab PO QAM warfarin 7.5 mg Tablet 7.5 mg PO DIRECTED Rx Instructions: TAKES ON WEDNESDAYS AND SATURDAYS warfarin 5 mg tablet 5 mg PO DIRECTED Rx Instructions: TAKE 5 MG ON MON, FRI, , FRI, SUN Discharge Orders: Discharge Order (Routine); Ordered 06/23/25 Ordered By: Belinda Summers Admission Data Admit Date/Time: 06/22/25 17:52 Attending Provider: Belinda Summers Admit Provider: Belinda Summers Primary Care Provider: Jesusita Clinton Other Providers: Belinda Summers Hospital Stay Data Consultations 06/22/25 15:37 ED Decision to Admit Stat Diagnostic Imagining Performed 06/22/25 17:49 CT head/brain wo con Stat Pending Results Patient Have Any Pending Studies at Discharge: No Discharge Instructions Given to Patient (Per Discharging Provider) You were admitted to the hospital for the evaluation of high blood pressure and chest pressure. Your symptoms improved with adequate blood pressure control. Please note that you were started on new medications to help control blood pressure. Continue to monitor blood pressure at home. Due to moderate risk of cardiovascular disease, you were also stated on cholesterol medication. You will need an outpatient sleep study that will need to get be ordered by your primary care doctor. Please note that you are pre-diabetic. Your Hgb A1c is 5.9. You will need to discuss this with your primary doctor and consider starting metformin. You could benefit from a stress test as well and this can be done as outpatient. You are medically stable for discharge. You will need to follow up with your primary care doctor in about 7 to 10 days. It was a pleasure being a part of your medical care team during your stay at [facility]. Total Time Total Time Spent Total Time Spent (In Minutes): 44 Coding Level of Care Code 48894 INP/OBS DISCH >30 MIN Diagnoses Hypothyroidism E03.9 Obesity E66.9 Chest pressure R07.89
[2025-06-23] MEDS ORDERED: NIFEdipine EXTENDED REL 30 MG TABCR PO SCH (21:00)
[2025-06-23] MEDS ORDERED: ATORVASTATIN 40 MG TAB PO SCH (21:00)
--- NOTE | 2025-06-24 07:41 | Coding Query ---
CHEST PAIN To promote full compliance with coding requirements relating to patient care physician participation is requested in all cases of lead pastor uncertainty. Please assist us with the question(s) below: Pt admitted for chest pressure and severe hypertension with B/P 187/97 in ED. Please document below , if known or suspected the etiology for the hypertension. Thanks for your help! Vince Medina [facility] Physician Response: Pt has essential hypertension. Not well controlled as outpatient. The uncontrolled nature of the hypertension led to her having chest pain. KSENIA
[2025-06-25] MEDS ORDERED: WARFARIN SOD 7.5 MG TAB PO SCH (16:00)
== END 2025-06-23 17:46 | disposition home or self-care (01) | DRG 313 ==
LOC: ED 13:53 → 2S 17:52

== ENCOUNTER 2025-06-30 13:01 | Inpatient (IN) ==
[2025-06-30 13:57] LABS: Hematocrit (blood only) 42.4 % (37.0-47.0); Hemoglobin 14.3 g/dl (12.0-16.0); Immature Granulocytes # (auto) 0.03 K/uL (0.01-0.20); Immature Granulocytes % (auto) 0.2 %; Mean Corpuscular Hemoglobin 32.1 pg (25.0-34.0); Mean Corpuscular Volume 95.1 fL (80.0-100.0); Platelet Count 248 K/uL (130-400); RDW Standard Deviation 45.7 fL (36.4-46.3); Red Blood Count 4.46 M/uL (4.20-5.40); White Blood Count 12.66 K/ul (4.8-10.8)
--- NOTE | 2025-06-30 14:10 | Emergency Department Note ---
Impression & Plan Abdominal pain, Hematuria, Kidney stones, UTI (urinary tract infection), Leukocytosis ED Provider Note CHIEF COMPLAINT: Abdominal pain HISTORY OF PRESENTING ILLNESS: The patient is a 59-year-old female with a PMH DVT, PE, migraine, asthma, HTN, obesity, back pain, arthritis, hypothyroidism, fibromyalgia, RA who presents to the emergency department reporting left lower quadrant pain radiating down into her pelvis, burning with urination, blood in her urine, and nausea/vomiting. This began about 3 to 4 days ago but has now worsened. She is on Coumadin. She denies fevers, chest pain, shortness of breath, URI symptoms, diarrhea, blood in her stool, vomiting blood. REVIEW OF SYSTEMS: See HPI for pertinent positives and pertinent negatives. ALLERGIES: See below MEDICATIONS: See below PAST MEDICAL HISTORY: See below PHYSICAL EXAM: VITALS: Vitals are noted on the nurses note and reviewed by myself. Vital signs stable. GENERAL: 59-year-old female, in obvious discomfort but in no acute distress, holding an emesis bag, nondiaphoretic, well-developed well-nourished. SKIN: Capillary refill less than 2 seconds. Small varicose vein that appears to have ruptured on the left lower ricci/calf. HEENT: Normocephalic. PERRLA. EOMI. Nares patent. Mucous membranes moist. Neck is supple without nuchal rigidity. HEART: Regular rate and rhythm without murmurs gallops or rubs. LUNGS: CTA BL without wheezes, rales or rhonchi. No retractions or accessory muscle use. ABDOMEN: Positive BS x 4. Soft, tenderness upon palpation to the LLQ, all other quadrants nontender, without masses or organomegaly. No guarding or rebound tenderness. MUSCULOSKELETAL: No gross musculoskeletal defects. No calf tenderness. NEURO: Patient was alert and oriented to person place and time. No focal neurological deficits. DIFFERENTIAL DIAGNOSIS: Differential diagnosis includes appendicitis, diverticulitis, bowel obstruction, inflammatory bowel disease, renal colic, PUD, biliary pathology, pancreatitis, mesenteric ischemia, aortic pathology, infection, genitourinary, UTI, perforated viscus, among others. ED COURSE AND MEDICAL DECISION MAKING: HISTORY FROM INDEPENDENT HISTORIAN: The patient herself and her . MEDICATIONS GIVEN: Zofran 4 mg IV, Tylenol 1000 mg IV, 1 L normal saline, 2 g Rocephin MONITOR: Continuous quality assurance monitor body: Order was placed for continuous quality assurance monitor body. Patient was placed on the quality assurance monitor body and continuous pulse ox. Patient was noted to be in normal sinus rhythm at an initial rate of 91 bpm per my interpretation. EKG: EKG was interpreted by myself as normal sinus rhythm. No obvious arrhythmia. No ST or T wave abnormality. NH interval 174 ms. QT interval 460 ms. No significant change when compared to a previous EKG from 06/22/2025. INTERPRETATION OF LABS: I interpreted the labs with full lab results as below in the lab section of this note. Pertinent lab results discussed in the MDM section below. INTERPRETATION OF IMAGING: Imaging studies were interpreted by myself and read by radiology as per the imaging section of this note. CT abdomen pelvis - Mild to moderate dilation of the left renal pelvis increased from previous CT. Layering hyperdensity noted at the left renal pelvis representing a small amount of hemorrhage or small layering calculi. Stranding adjacent to the left renal pelvis and left ureter which may be due to a ureteral calculus or infectious process. Mild bladder wall thickening. Right nephrolithiasis no change. ESCALATION OF CARE CONSIDERED: Escalation of care was considered as the patient presented with chills, nausea and vomiting, and severe abdominal pain. CT image obtained showing possible passing of kidney stone or recently passed stone. Urinalysis/patient's presentation concerning for UTI. Patient has an elevated white count however no fever or tachycardia. The patient was admitted to medicine for further treatment and workup. CONSULTATIONS: On-call [facility] hospitalist - Presented the patient to the provider noting a CT findings, leukocytosis, and patient's discomfort. She is on a blood thinner and has significant gross hematuria. Patient's symptoms are controlled at this time and she has been started on antibiotics. They agreed to evaluate the patient and admitting to medicine. MDM SUMMARY: I evaluated the 59-year-old female who presents to the emergency department due to LLQ abdominal pain, nausea and vomiting, dysuria, and hematuria. See HPI and PE above. Patient's vitals are stable. Zofran, Tylenol, and 1 L normal saline given for symptom management. EKG obtained initial rate 91 bpm normal sinus rhythm. No other obvious abnormality. Labs obtained showing leukocytosis WBC 12.66. Hemodynamically stable. INR 2.2 (therapeutic range >2.5). No electrolyte abnormality. No TANISHA. Lactate 0.7. Troponin 4.7. Lipase 15. Urinalysis obtained showing urine RBC and urine WBC. Gross hematuria on evaluation of sample. Patient later reports tick bite on lower abdomen which is noted to be a small scab without surrounding erythema. No rashes on exam and denies all other symptoms. Lyme screening negative. CT abdomen and pelvis obtained showing small amount of hemorrhage at the left renal pelvis or small layering calculi. Noting possible passing of stone versus infectious process. Due to patient's urinary symptoms she was started on 2 g Rocephin. Due to the patient's CT findings, gross hematuria on Coumadin, and worsening symptoms she was admitted to the hospitalist. Consultation can be seen in detail above. Patient is agreeable to admission and all questions answered. The patient was admitted in stable condition. DIAGNOSIS: Abdominal pain, hematuria, kidney stone, UTI, leukocytosis The chart was completed utilizing [employer] voice recognition software. Grammatical errors, random word insertions, pronoun errors, and incomplete sentences are an occasional consequence of this system due to software limitations, ambient noise, and hardware issues. Any formal questions or concerns about the content, text, or information contained within the body of this dictation should be directly addressed to the provider for clarification. Past Med/Surg History Problem List Tick bite of abdominal wall Leukocytosis (Acute) UTI (urinary tract infection) (Acute) Kidney stones (Acute) Hematuria (Acute) Abdominal pain (Acute) Morbid obesity with BMI of 50.0-59.9, adult Abnormal CT of the abdomen UTI (urinary tract infection) Left flank pain Hematuria Subtherapeutic international normalized ratio (INR) (Acute) Hypertension, uncontrolled (Acute) Substernal chest pain (Acute) Chest pressure Partial tear of right rotator cuff Tendinopathy of right rotator cuff Rheumatoid arthritis Fibromyalgia Celiac disease Hypothyroidism Prediabetes Mild mitral regurgitation Arthritis of both knees Thoracic back pain Lipodermatosclerosis of right lower extremity Morbid obesity Chronic venous insufficiency Obesity (Chronic) Disordered sleep Cervical spine disease Medial meniscus tear Anticoagulant long-term use Hypertension Vitamin D deficiency Acute superficial venous thrombosis of right lower extremity (09/2021) 09/2021, f/u Dr. Larose, [facility] On Coumadin Venous reflux Tinnitus of both ears Varicose veins of legs Asthma uses an inhaler prn Chronic rhinitis Migraine History of pulmonary embolism (~2010) Hx of recurrent right lower extremity thrombophlebitis and hx of PE (2010) per heme records Follows with Michele Mckeon On Coumadin in 2010 x 6 months and then d/c'ed- superficial venous thrombosis 09/2021- restarted on Coumadin History of DVT (deep vein thrombosis) (~2010) "2010"; f/u Michele Mckeon Medical History Dysphagia Neck mass Dysphonia Esophageal dilatation 11/04/24 Vertigo History of anesthesia reaction "Years ago felt like I couldn't breath when I woke up" History of COVID-19 09/2021, not hospitalized, [facility] [place] pcr test, shortness of breath, developed into pneumonia>resolved. Pneumonia due to COVID-19 virus 09/2021, not hospitalized, resolved. Lyme disease Surgical History S/P excision of lipoma (03/2022) L side neck Hx of colonoscopy Hx of endoscopic retrograde cholangiopancreatography Hx of laparoscopy H/O ovarian cystectomy S/P cholecystectomy Family History Mother Coronary heart disease Hypertension Father Diabetes Brother Diabetes Grandmother (Maternal) VTE (venous thromboembolism) Denies family history of Ovarian cancer Prostate cancer Myocardial infarction Breast cancer Lung cancer Colorectal cancer Social History Smoking Status: Never smoker Second Hand Exposure: No; Do You Dip or Chew Tobacco: No; Hx Alcohol Use: Yes Alcohol type: hard liquor Alcohol Intake Frequency: Monthly or Less Hx Substance Use: No Preferred Language: Wolof Communication Ability: Effective Visual Impairment: Limited Hearing Ability: Normal Special Education Para Professional Required: No Beliefs That Will Affect Care: None marital status: Single Current Living Situation: Significant Other Current Living Situation Comment: Lives with significant other. 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 How many Children do You have: 0 Other Information That Helps Us Care for You: No Feels Safe at Home: Yes Safety Concerns: Feels Safe At This Time Childhood Exposure to Second-Hand Smoke: No Diet: regular Diet Comment: regular caffeine: No during the past year weight has: remained stable Dental Care, Regularly: No Physical Activity Frequency: Does not Exercise Seatbelt Use: sometimes Sunscreen Use: Yes Assistive Devices: Cane Allergies Allergies Allergy/AdvReac Type Severity Reaction Status Date / Time Iodinated Contrast Media Allergy Severe RASH, SOB Verified 06/28/25 14:24 sulfamethoxazole Allergy Severe ANAPHALACTIC Verified 06/28/25 14:24 SHOCK trimethoprim Allergy Severe ANAPHALACTIC Verified 06/28/25 14:24 SHOCK codeine Allergy Intermediate HIVES; PT Verified 06/28/25 14:24 TOLERATES DILAUDID latex Allergy Mild RASH Verified 06/28/25 14:24 sumatriptan [From Imitrex] Allergy Mild scratchy Verified 06/28/25 14:24 throat lisinopril AdvReac Mild Cough Verified 06/28/25 14:24 tetanus toxoid, adsorbed AdvReac Unknown HARD LUMP Verified 06/28/25 14:24 AT INJECTION SITE losartan AdvReac Severe Dizziness Uncoded 06/28/25 14:24 Home Meds Home Medications Medication Instructions Recorded Confirmed multivitamin 1 tab PO QAM 08/09/22 06/30/25 potassium chloride 10 mEq 10 meq PO .every other day PRN 10/01/23 06/30/25 capsule,extended release WATER RETENTION hydroxychloroquine 200 mg tablet 400 mg PO DAILY 12/07/24 06/30/25 (Plaquenil) warfarin 5 mg tablet 5 mg PO DIRECTED 06/22/25 06/30/25 warfarin 7.5 mg tablet 7.5 mg PO DIRECTED 06/22/25 06/30/25 nifedipine 30 mg tablet,extended 30 mg PO QPM 06/28/25 06/30/25 release 24 hr (Procardia XL) Previous Rx's Medication Instructions Recorded cholecalciferol (vitamin D3) 50 5,000 mcg (100 x 50 mcg (2,000 12/04/23 mcg (2,000 unit) capsule unit)) PO DAILY #30 caps albuterol sulfate 2.5 mg/3 mL 2.5 mg (3 mL) inhalation QAM PRN 07/06/24 (0.083 %) solution for nebulization Shortness Of Breath #90 mL albuterol sulfate 90 mcg/actuation 1 - 2 inh inhalation UD PRN 07/06/24 aerosol inhaler (Ventolin HFA) Shortness Of Breath #8.5 grams furosemide 20 mg tablet 20 mg PO DAILY PRN Fluid Retention 12/23/24 #90 tabs aspirin 81 mg tablet,delayed 81 mg PO DAILY #30 tabs 06/23/25 release Results & Data (ED) Vital Signs Vital Signs - 24 hr 06/30/25 13:05 06/30/25 15:26 06/30/25 17:00 Temperature 36.6 C Temperature Source Temporal Artery Scan Pulse Rate 78 Pulse Rate [Right Finger] 90 78 Pulse Rhythm [Right Finger] Regular Pulse Strength [Right Finger] Normal Respiratory Rate 18 20 16 Respiratory Effort / Characteristics Non-Labored Spontaneous Non-Labored Spontaneous Respiratory Depth Normal Normal Respiratory Pattern Regular Blood Pressure 167/87 H Blood Pressure [Right Arm] 135/94 171/97 H Blood Pressure Mean 113 Blood Pressure Mean [Right Arm] 107 121 Blood Pressure Position [Right Arm] Lying Pulse Oximetry 100 97 94 Oxygen Delivery Method Room Air Room Air Room Air Sepsis Recent Fever Within 48 Hours No Sepsis New/Unexplained Change in Mental Status No Sepsis Action Taken by Nursing No Action Required 06/30/25 19:00 06/30/25 19:06 Temperature Temperature Source Pulse Rate 80 Pulse Rate [Right Finger] 80 Pulse Rhythm [Right Finger] Regular Pulse Strength [Right Finger] Normal Respiratory Rate 16 Respiratory Effort / Characteristics Non-Labored Spontaneous Respiratory Depth Normal Respiratory Pattern Regular Blood Pressure Blood Pressure [Right Arm] 142/87 H Blood Pressure Mean Blood Pressure Mean [Right Arm] 105 Blood Pressure Position [Right Arm] Lying Pulse Oximetry 96 Oxygen Delivery Method Room Air Sepsis Recent Fever Within 48 Hours Sepsis New/Unexplained Change in Mental Status Sepsis Action Taken by Nursing Laboratory Data 07/01/25 06:23 07/01/25 06:23 Lab Results 06/30/25 06/30/25 Range/Units 13:30 16:13 WBC 12.66 H (4.8-10.8) K/ul RBC 4.46 (4.20-5.40) M/uL Hgb 14.3 (12.0-16.0) g/dl Hct 42.4 (37.0-47.0) % MCV 95.1 (80.0-100.0) fL MCH 32.1 (25.0-34.0) pg MCHC 33.7 (32.0-36.0) g/dL RDW Std Deviation 45.7 (36.4-46.3) fL RDW Coeff of Ramon 13.0 (11.5-14.5) % Plt Count 248 (130-400) K/uL MPV 9.3 L (9.4-12.4) fL Immature Gran % (Auto) 0.2 % Neut % (Auto) 85.5 % Lymph % (Auto) 8.3 % Marin % (Auto) 5.1 % Eos % (Auto) 0.6 % Baso % (Auto) 0.3 % Neut # (Auto) 10.82 H (1.40-6.50) K/uL Lymph # (Auto) 1.05 L (1.20-3.40) K/uL Marin # (Auto) 0.64 H (0.11-0.59) K/uL Eos # (Auto) 0.08 (0.00-0.50) K/uL Baso # (Auto) 0.04 (0.00-0.20) K/uL Immature Gran # (Auto) 0.03 (0.01-0.20) K/uL PT 22.1 H (9.0-12.0) Seconds INR 2.2 H (0.9-1.1) APTT 40 H (21-31) Seconds PTT Ratio 1.5 Sodium 138 (136-145) mmol/L Potassium 3.8 (3.5-5.1) mmol/L Chloride 105 (98-107) mmol/L Carbon Dioxide 28 (21-32) mmol/L Anion Gap 5 (3-11) BUN 14 (6-23) mg/dl Creatinine 0.61 (0.6-1.2) mg/dl Est Cr Clr Drug Dosing Not Reportable eGFR 104.21 BUN/Creatinine Ratio 23.0 H (10-20) Glucose 112 H (70-99(Fasting)) mg/dl Lactate 0.7 (0.4-2.0) mmol/L Calcium 9.1 (8.6-10.3) mg/dl Total Bilirubin 0.5 (0.2-1.0) mg/dl AST 16 (13-39) U/L ALT 18 (7-52) U/L Alkaline Phosphatase 71 (34-104) U/L Troponin I High Sens 4.7 (0-14) pg/ml Total Protein 6.9 (6.0-8.3) gm/dl Albumin 4.0 (3.4-5.0) gm/dl Globulin 2.9 (2.5-4.0) gm/dl Albumin/Globulin Ratio 1.4 (0.9-2) Lipase 15 (11-82) U/L Procalcitonin < 0.02 (0-0.5) ng/ml Lyme Disease Screen Negative (Negative) Administered Medications Acetaminophen (Acetaminophen 500 Mg Tab) 1,000 mg PO Q6H PRN PRN Reason: Pain or Fever Stop: 07/30/25 21:05 Last Admin: 07/01/25 20:00 Dose: 1,000 mg Documented By: Admin: 07/01/25 03:31 Dose: 1,000 mg Documented By: Admin: 06/30/25 21:32 Dose: 1,000 mg Documented By: Admin: 06/30/25 21:30 Dose: 1,000 mg Documented By: NANDA Aspirin (Aspirin 81 Mg Ectab) 81 mg PO DAILY JOVI Stop: 07/31/25 08:59 Last Admin: 07/01/25 10:26 Dose: Not Given Documented By: EP Hydroxychloroquine Sulfate (Hydroxychloroquine Sulfate 200 Mg Tab) 400 mg PO DAILY JOVI Stop: 07/31/25 08:59 Last Admin: 07/01/25 10:27 Dose: Not Given Documented By: EP Ceftriaxone Sodium (Rocephin) 2,000 mg in 50 mls @ 100 mls/hr IV Q24H JOVI Stop: 07/07/25 16:59 Last Infusion: 07/01/25 18:18 Dose: Infused Documented By: Admin: 07/01/25 17:45 Dose: 100 mls/hr Documented By: CARLYLE Multivitamins (Multivitamin Tab) 1 tab PO [facility] JOVI Stop: 07/31/25 08:59 Last Admin: 07/01/25 10:27 Dose: Not Given Documented By: EP Nifedipine (Nifedipine Extended Rel 30 Mg Tabcr) 30 mg PO QPM JOVI Stop: 07/30/25 21:05 Last Admin: 07/01/25 20:00 Dose: 30 mg Documented By: Admin: 06/30/25 21:29 Dose: Not Given Documented By: NANDA Ondansetron HCl (Ondansetron Inj 2 Mg/Ml 2 Ml Vial) 4 mg IV Q6H PRN PRN Reason: Nausea Stop: 07/30/25 21:05 Last Admin: 07/01/25 03:56 Dose: 4 mg Documented By: NANDA Phenazopyridine HCl (Phenazopyridine Hcl 100 Mg Tab) 100 mg PO TID PRN PRN Reason: Pain Stop: 07/31/25 04:18 Last Admin: 07/01/25 06:42 Dose: 100 mg Documented By: NANDA Vitamin D (Jania) 125 mcg PO QAM JOVI Stop: 07/31/25 08:59 Last Admin: 07/01/25 10:27 Dose: Not Given Documented By: CARLYLE Discontinued Medications Doxycycline Hyclate (Doxycycline Hyclate 100 Mg Cap) 200 mg PO NOW STA Stop: 06/30/25 19:01 Last Admin: 06/30/25 19:43 Dose: 200 mg Documented By: HUGH Hydromorphone HCl (Hydromorphone Inj 0.5 Mg/0.5 Ml Syr) 0.5 mg IV NOW STA Stop: 07/01/25 04:13 Last Admin: 07/01/25 04:25 Dose: Not Given Documented By: NANDA Hydromorphone HCl (Hydromorphone Inj 0.5 Mg/0.5 Ml Syr) 0.25 mg IV NOW STA Stop: 07/01/25 07:35 Last Admin: 07/01/25 07:47 Dose: 0.25 mg Documented By: CARLYLE Acetaminophen (Ofirmev) 1,000 mg in 100 mls @ 400 mls/hr IV NOW STA Stop: 06/30/25 14:34 Last Infusion: 06/30/25 17:03 Dose: Infused Documented By: Admin: 06/30/25 15:30 Dose: 400 mls/hr Documented By: ARVIND Sodium Chloride (Nss) 1,000 mls @ 999 mls/hr IV .Q1H1M ONE Stop: 06/30/25 15:20 Last Infusion: 06/30/25 17:03 Dose: Infused Documented By: Admin: 06/30/25 15:30 Dose: 999 mls/hr Documented By: ARVIND Ceftriaxone Sodium (Rocephin) 2,000 mg in 50 mls @ 100 mls/hr IV NOW STA Stop: 06/30/25 17:46 Last Infusion: 06/30/25 18:09 Dose: Infused Documented By: Admin: 06/30/25 17:23 Dose: 100 mls/hr Documented By: HUGH Sodium Chloride (Nss) 1,000 mls @ 75 mls/hr IV .[id number] JOVI Stop: 07/01/25 10:25 Last Infusion: 07/01/25 11:41 Dose: Infused Documented By: Admin: 06/30/25 21:47 Dose: 75 mls/hr Documented By: NANDA Ketorolac Tromethamine (Ketorolac Tromethamine 15 Mg/Ml Vial) 15 mg IV NOW ONE Stop: 07/01/25 04:16 Last Admin: 07/01/25 04:23 Dose: 15 mg Documented By: NANDA Morphine Sulfate (Morphine Sulfate 2 Mg/Ml Carp) 2 mg IV Q3H PRN PRN Reason: pain Stop: 07/14/25 21:05 Last Admin: 07/01/25 07:16 Dose: 2 mg Documented By: Admin: 07/01/25 03:56 Dose: 2 mg Documented By: NANDA Morphine Sulfate (Morphine Sulfate 4 Mg/Ml 1 Ml Carp\\Vial) 2 mg IV Q3H PRN PRN Reason: pain Stop: 07/15/25 08:26 Last Admin: 07/01/25 14:34 Dose: 2 mg Documented By: CARLYLE Ondansetron HCl (Ondansetron Inj 2 Mg/Ml 2 Ml Vial) 4 mg IV NOW STA Stop: 06/30/25 14:21 Last Admin: 06/30/25 15:27 Dose: 4 mg Documented By: ARVIND Ondansetron HCl (Ondansetron Inj 2 Mg/Ml 2 Ml Vial) 4 mg IV NOW STA Stop: 07/01/25 07:33 Last Admin: 07/01/25 07:43 Dose: 4 mg Documented By: CARLYLE Imaging Data Radiologist's Impression: Abdomen/Pelvis CT 06/30/25 14:24 CT OF THE ABDOMEN AND PELVIS WITHOUT CONTRAST CLINICAL HISTORY: Left lower quadrant abdominal pain. COMPARISON STUDY: CT of the abdomen and pelvis February 13, 2023. Pelvic ultrasound February 13, 2023. TECHNIQUE: Axial images of the abdomen and pelvis were obtained without IV contrast. Images were reviewed in the axial, sagittal, and coronal planes. Automated exposure control was utilized for the study. A dose lowering technique was utilized adhering to the principles of ALARA. FINDINGS: Visualized lung bases are unremarkable. No pneumatosis, free air or portal venous gas is present. Two calculi within the lower pole of the right kidney measure up to 6 mm. There are no right ureteral calculi. Moderate dilatation of the right renal pelvis and mild right calyceal dilatation is similar to prior CT. Mild to moderate dilatation left renal pelvis has increased since prior CT. There is also stranding adjacent to the left renal pelvis and left ureter with suspected urothelial thickening. A small amount of layering hyperdense material within the left renal pelvis is noted. There is no significant left-sided calyceal dilatation. There is an equivocal punctate proximal left ureteral calculus on image 209 of 401. There is mild bladder wall thickening with adjacent stranding. No evidence for a bowel obstruction. There is no biliary ductal dilatation status post cholecystectomy. Unenhanced images of the liver, spleen, adrenal glands and pancreas are unremarkable. Colonic diverticulosis. No evidence for acute diverticulitis. There is no evidence for acute appendicitis. There is no lymphadenopathy. No fluid collections are present. IMPRESSION: 1. Mild to moderate dilatation of the left renal pelvis which has increased since prior CT. Layering hyperdense material within the left renal pelvis could represent a small amount of hemorrhage or small layering calculi. Equivocal punctate proximal left ureteral calculus. Stranding adjacent to the left renal pelvis and left ureter which could be due to the ureteral calculus, a recently passed calculus or an infectious process. Mild bladder wall thickening with adjacent stranding which could be correlated with urinalysis. 2. Right nephrolithiasis. No significant change in right pelvicalyceal dilatation since prior CT. 3. Colonic diverticulosis. No evidence for acute diverticulitis. ACT 112: Negative or not required by law. Electronically signed by: Jose Manuel Hardy M.D. 06/30/2025 3:00 PM Discharge Plan Visit Data Chief Complaint: Abdominal Pain Stated Complaint: ABD PAIN ED Provider: Gabriel Larose ED Midlevel Provider: Natalie Lopez Discharge Problem: Abdominal pain, Hematuria, Kidney stones, UTI (urinary tract infection), Leukocytosis Patient Disposition: Admitted As Inpatient Condition: Good Discharge Instructions Interventions: ED Discharge Assessment Last Done: 06/30/25 20:30 Discharge Problem: Abdominal pain Qualifiers: Abdominal location: left lower quadrant Qualified Code(s): R10.32 - Left lower quadrant pain Hematuria Qualifiers: Hematuria type: unspecified type Qualified Code(s): R31.9 - Hematuria, unspecified UTI (urinary tract infection) Qualifiers: Urinary tract infection type: site unspecified Hematuria presence: with hematuria Qualified Code(s): N39.0 - Urinary tract infection, site not specified Leukocytosis Qualifiers: Leukocytosis type: unspecified Qualified Code(s): D72.829 - Elevated white blood cell count, unspecified
[2025-06-30 14:15] LABS: Alanine Aminotransferase 18 U/L (7-52); Albumin Globulin Ratio 1.4 (0.9-2); Albumin Level 4.0 gm/dl (3.4-5.0); Alkaline Phosphatase 71 U/L (34-104); Anion Gap 5 (3-11); Bilirubin,Total 0.5 mg/dl (0.2-1.0); Blood Urea Nitrogen 14 mg/dl (6-23); Calcium 9.1 mg/dl (8.6-10.3); Carbon Dioxide 28 mmol/L (21-32); Chloride 105 mmol/L (98-107); Globulin 2.9 gm/dl (2.5-4.0); Glucose 112 mg/dl (70-99(Fasting)); Lipase 15 U/L (11-82); Potassium 3.8 mmol/L (3.5-5.1); Sodium 138 mmol/L (136-145); Total Protein 6.9 gm/dl (6.0-8.3)
--- NOTE | 2025-06-30 15:01 | CT Scan Report ---
CT OF THE ABDOMEN AND PELVIS WITHOUT CONTRAST CLINICAL HISTORY: Left lower quadrant abdominal pain. COMPARISON STUDY: CT of the abdomen and pelvis February 13, 2023. Pelvic ultrasound February 13, 2023. TECHNIQUE: Axial images of the abdomen and pelvis were obtained without IV contrast. Images were revi ewed in the axial, sagittal, and coronal planes. Automated exposure control was utilized for the pari dy. A dose lowering technique was utilized adhering to the principles of ALARA. FINDINGS: Visualized lung bases are unremarkable. No pneumatosis, free air or portal venous gas is pr esent. Two calculi within the lower pole of the right kidney measure up to 6 mm. There are no right u reteral calculi. Moderate dilatation of the right renal pelvis and mild right calyceal dilatation is similar to prior CT. Mild to moderate dilatation left renal pelvis has increased since prior CT. Ther e is also stranding adjacent to the left renal pelvis and left ureter with suspected urothelial thick ening. A small amount of layering hyperdense material within the left renal pelvis is noted. There is no significant left-sided calyceal dilatation. There is an equivocal punctate proximal left ureteral calculus on image 209 of 401. There is mild bladder wall thickening with adjacent stranding. No evid ence for a bowel obstruction. There is no biliary ductal dilatation status post cholecystectomy. Unen hanced images of the liver, spleen, adrenal glands and pancreas are unremarkable. Colonic diverticulo sis. No evidence for acute diverticulitis. There is no evidence for acute appendicitis. There is no l ymphadenopathy. No fluid collections are present. IMPRESSION: 1. Mild to moderate dilatation of the left renal pelvis which has increased since prior CT. Layering hyperdense material within the left renal pelvis could represent a small amount of hemorrhage or smal l layering calculi. Equivocal punctate proximal left ureteral calculus. Stranding adjacent to the lef t renal pelvis and left ureter which could be due to the ureteral calculus, a recently passed calculu s or an infectious process. Mild bladder wall thickening with adjacent stranding which could be corre lated with urinalysis. 2. Right nephrolithiasis. No significant change in right pelvicalyceal dilatation since prior CT. 3. Colonic diverticulosis. No evidence for acute diverticulitis. ACT 112: Negative or not required by law. Electronically signed by: Jose Manuel Hardy M.D. 06/30/2025 3:00 PM
[2025-06-30] MEDS: ONDANSETRON INJ 2 MG/ML 2 ML VIAL IV STA (15:27)
[2025-06-30] MEDS: ACETAMINOPHEN 1,000 MG/100 ML VIAL IV STA (15:30)
[2025-06-30] MEDS: SODIUM CHLORIDE 0.9% 1,000 ML IV ONE (15:30)
[2025-06-30 15:47] LABS: INR 2.2 (0.9-1.1); Partial Thromboplastin Time 40 Seconds (21-31); Prothrombin Time 22.1 Seconds (9.0-12.0)
[2025-06-30 16:50] LABS: Appearance Urine Turbid (Clear)
[2025-06-30] MEDS: cefTRIAXone SODIUM 2,000 MG/50 ML BAG IV STA (17:23)
--- NOTE | 2025-06-30 17:48 | History & Physical Report ---
Date of Service June 30, 2025 Assessment & Plan (1) Hematuria: (2) Left flank pain: (3) UTI (urinary tract infection): (4) Abnormal CT of the abdomen: (5) Rheumatoid arthritis: (6) Fibromyalgia: (7) Celiac disease: (8) Hypothyroidism: (9) Prediabetes: (10) Chronic venous insufficiency: (11) History of pulmonary embolism: (12) History of DVT (deep vein thrombosis): (13) Morbid obesity with BMI of 50.0-59.9, adult: (14) Tick bite of abdominal wall: Plan Pleasant 59yo female with HTN, RA, h/o DVT & PE on chronic coumadin, hypothyroidism, and recent hospitalization from 06/22 to 06/23 for chest pain thought 2nd to uncontrolled HTN. Presented with severe left flank pain and left sided abdominal pain followed by gross hematuria. CT abd/pelvis with abnormal left kidney, renal pelvis, and ureter. U/a suggestive of UTI. #left flank pain, left-sided abdominal pain - -differential -- recently passed kidney stone with bleeding/hematuria vs calyceal rupture with bleeding vs renal cyst rupture with bleeding vs UTI contributing to hematuria vs combo of factors vs other -formal [facility] [place] [facility] consult requested -IV fluids overnight -pain control -IV abx to cover for UTI -repeat CBC/BMP in am -HOLD coumadin -consider holding aspirin -NPO after MN tonight in the event she needs cystoscopy, etc. #UTI - -u/a suggestive of UTI -urine cx dispatched -s/p rocephin IV in the ER - continue for now -see "left flank pain" above #gross hematuria - -CBC in am -see discussion above -see differential above -HOLD coumadin; consider holding aspirin as well #prior h/o DVT & PE on chronic coumadin - -holding coumadin due to gross hematuria #morbid obesity BMI 54 #celiac disease - -gluten free diet when eating #rheumatoid arthritis - -ok to continue plaquenil for now #left calf pain/ecchymoses - -varicose vein that ruptured? -coleman cyst of left knee that ruptured? -other? -symptoms improved by time of admission today; follow #right upper back pain - -doubt any connection to the left kidney findings on CT -her pain in this region is already improved #HTN - -cont nifedipine xl #tick bite, abdominal wall - tick removed 1-2 days ago - -doxycycline 200mg po x 1 for prophylaxis #pre-DM - -most recent a1c 5.9% -BSGs prn pt's updated at bedside during the encounter care d/w on-call urology via [place] correspondence History of Present Illness Chief Complaint: left sided flank and abdominal pain Primary Care Provider: DO Binh Potter 59yo female with HTN, RA, h/o DVT / PE on chronic coumadin, hypothyroidism, and recent hospitalization from 06/22 to 06/23 for chest pain thought 2nd to uncontrolled HTN. Following her discharge she was doing ok until early this week when she developed pain in the left lateral calf. This pain lasted for 2-3 days and has subsided. She subsequently developed ecchymosis in the area of previous pain. Then, early this am, she developed right upper back pain. This lasted about an hour then self-resolved. During that time she had mild dyspnea but no chest pain. Once the back pain subsided she then developed left-sided lower abdominal pain. The pain then traveled into the left flank, and also traveled into the region of the left pelvis/bladder. The pain worsened, and she developed severe nausea. No emesis. No shakir dysuria, but her urine flow simply "doesn't feel right." Due to the pain persisting and the nausea she finally came to the ER for evaluation. After arrival she developed gross hematuria. No fevers, but having sweats/feeling cold. Allergies Allergy/AdvReac Type Severity Reaction Status Date / Time Iodinated Contrast Media Allergy Severe RASH, SOB Verified 06/28/25 14:24 sulfamethoxazole Allergy Severe ANAPHALACTIC Verified 06/28/25 14:24 SHOCK trimethoprim Allergy Severe ANAPHALACTIC Verified 06/28/25 14:24 SHOCK codeine Allergy Intermediate HIVES; PT Verified 06/28/25 14:24 TOLERATES DILAUDID latex Allergy Mild RASH Verified 06/28/25 14:24 sumatriptan [From Imitrex] Allergy Mild scratchy Verified 06/28/25 14:24 throat lisinopril AdvReac Mild Cough Verified 06/28/25 14:24 tetanus toxoid, adsorbed AdvReac Unknown HARD LUMP Verified 06/28/25 14:24 AT INJECTION SITE losartan AdvReac Severe Dizziness Uncoded 06/28/25 14:24 Home Medications Medication Instructions Recorded Confirmed Type multivitamin 1 tab PO QAM 08/09/22 06/30/25 History potassium chloride 10 mEq 10 meq PO .every other day PRN 10/01/23 06/30/25 History capsule,extended release WATER RETENTION cholecalciferol (vitamin D3) 50 5,000 mcg (100 x 50 mcg (2,000 12/04/23 06/30/25 Rx mcg (2,000 unit) capsule unit)) PO DAILY #30 caps albuterol sulfate 2.5 mg/3 mL 2.5 mg (3 mL) inhalation QAM PRN 07/06/24 06/30/25 Rx (0.083 %) solution for nebulization Shortness Of Breath #90 mL albuterol sulfate 90 mcg/actuation 1 - 2 inh inhalation UD PRN 07/06/24 06/30/25 Rx aerosol inhaler (Ventolin HFA) Shortness Of Breath #8.5 grams hydroxychloroquine 200 mg tablet 400 mg PO DAILY 12/07/24 06/30/25 History (Plaquenil) furosemide 20 mg tablet 20 mg PO DAILY PRN Fluid Retention 12/23/24 06/30/25 Rx #90 tabs warfarin 5 mg tablet 5 mg PO DIRECTED 06/22/25 06/30/25 History warfarin 7.5 mg tablet 7.5 mg PO DIRECTED 06/22/25 06/30/25 History aspirin 81 mg tablet,delayed 81 mg PO DAILY #30 tabs 06/23/25 06/30/25 Rx release nifedipine 30 mg tablet,extended 30 mg PO QPM 06/28/25 06/30/25 History release 24 hr (Procardia XL) Past Med/Surg History Problem List (Updated 06/30/25 @ 23:46 by Jose E Hurley MD) Tick bite of abdominal wall Leukocytosis (Acute) UTI (urinary tract infection) (Acute) Kidney stones (Acute) Hematuria (Acute) Abdominal pain (Acute) Morbid obesity with BMI of 50.0-59.9, adult Abnormal CT of the abdomen UTI (urinary tract infection) Left flank pain Hematuria Subtherapeutic international normalized ratio (INR) (Acute) Hypertension, uncontrolled (Acute) Substernal chest pain (Acute) Chest pressure Partial tear of right rotator cuff Tendinopathy of right rotator cuff Rheumatoid arthritis Fibromyalgia Celiac disease Hypothyroidism Prediabetes Mild mitral regurgitation Arthritis of both knees Thoracic back pain Lipodermatosclerosis of right lower extremity Morbid obesity Chronic venous insufficiency Obesity (Chronic) Disordered sleep Cervical spine disease Medial meniscus tear Anticoagulant long-term use Hypertension Vitamin D deficiency Acute superficial venous thrombosis of right lower extremity (09/2021) 09/2021, f/u Michele Mckeon On Coumadin Venous reflux Tinnitus of both ears Varicose veins of legs Asthma uses an inhaler prn Chronic rhinitis Migraine History of pulmonary embolism (~2010) Hx of recurrent right lower extremity thrombophlebitis and hx of PE (2010) per heme records Follows with Michele Mckeon On Coumadin in 2010 x 6 months and then d/c'ed- superficial venous thrombosis 09/2021- restarted on Coumadin History of DVT (deep vein thrombosis) (~2010) "2010"; f/u Michele Mckeon Medical History Dysphagia Neck mass Dysphonia Esophageal dilatation 11/04/24 Vertigo History of anesthesia reaction "Years ago felt like I couldn't breath when I woke up" History of COVID-19 09/2021, not hospitalized, [facility] [place] pcr test, shortness of breath, developed into pneumonia>resolved. Pneumonia due to COVID-19 virus 09/2021, not hospitalized, resolved. Lyme disease Surgical History S/P excision of lipoma (03/2022) L side neck Hx of colonoscopy Hx of endoscopic retrograde cholangiopancreatography Hx of laparoscopy H/O ovarian cystectomy S/P cholecystectomy Family History (Updated 06/30/25 @ 20:51 by Jose E Hurley MD) Mother Coronary heart disease Hypertension Father Diabetes Brother Diabetes Grandmother (Maternal) VTE (venous thromboembolism) Denies family history of Ovarian cancer Prostate cancer Myocardial infarction Breast cancer Lung cancer Colorectal cancer Social History (Updated 06/30/25 @ 20:52 by Jose E Hurley MD) Smoking Status: Never smoker Second Hand Exposure: No; Do You Dip or Chew Tobacco: No; Hx Alcohol Use: Yes Alcohol type: hard liquor Alcohol Intake Frequency: Monthly or Less Hx Substance Use: No Preferred Language: Greek Communication Ability: Effective Visual Impairment: Limited Hearing Ability: Normal Ladies Suit Operator Required: No Beliefs That Will Affect Care: None marital status: Single Current Living Situation: Significant Other Current Living Situation Comment: Lives with significant other. 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 How many Children do You have: 0 Other Information That Helps Us Care for You: No Feels Safe at Home: Yes Safety Concerns: Feels Safe At This Time Childhood Exposure to Second-Hand Smoke: No Diet: regular Diet Comment: regular caffeine: No during the past year weight has: remained stable Dental Care, Regularly: No Physical Activity Frequency: Does not Exercise Seatbelt Use: sometimes Sunscreen Use: Yes Assistive Devices: Glasses Review of Systems Review of Systems: gen - no fevers but having cold chills, no weight change, had been eating fine until today eyes - no ocular complaints HENT - no URI symptoms CV - no chest pain pulm - mild dyspnea earlier today, no cough GI - left flank and left abd pain along with nausea but no emesis; no melena or BRBPR - gross hematuria in the ER, mild dysuria musculo - chronic b/l knee pain; recent Left calf pain; chronic right shoulder pain; transient right upper back pain earlier today now resolved skin - ecchymoses left calf; tick bite -- removed the tick either Friday or Friday - was on abdominal wall neuro - no headache, no focal motor weakness endo - no diabetes Physical Exam Physical Exam: gen - NAD, pleasant, laying comfortably on the stretcher eyes - PERRL HENT - MMM, no lesions neck - no JVD, no goiter, no lymph nodes heart - RRR, s1 s2, no murmur lungs - CTA b/l abd - soft, mild L flank tenderness and mild LLQ tenderness to palpation, BS+, no HSM skin - varicose veins b/l legs; ecchymoses left lateral calf region; previous tick bite site lower abdominal wall w/o cellulitis musculo - right shoulder with decent passive ROM but is tender over subacromial region to palpation; b/l knees with crepitus neuro - strength 5/5 x 4 exts, DTRs 2+ b/l upper and lower exts psych - a/o x 3 Results & Data Results & Data Vital Signs (Past 12 Hours) Vital Signs Temp Pulse Pulse Resp BP BP Pulse Ox 06/30/25 17:00 78 16 171/97 H 94 06/30/25 15:26 90 20 135/94 97 06/30/25 13:05 36.6 C 78 18 167/87 H 100 O2 Del Method 06/30/25 17:00 Room Air 06/30/25 15:26 Room Air 06/30/25 13:05 Room Air Laboratory Results Laboratory Results - last 24 hr 06/30/25 06/30/25 06/30/25 13:30 16:13 Unknown WBC 12.66 H RBC 4.46 Hgb 14.3 Hct 42.4 MCV 95.1 MCH 32.1 MCHC 33.7 RDW Std Deviation 45.7 RDW Coeff of Ramon 13.0 Plt Count 248 MPV 9.3 L Immature Gran % (Auto) 0.2 Neut % (Auto) 85.5 Lymph % (Auto) 8.3 Foard % (Auto) 5.1 Eos % (Auto) 0.6 Baso % (Auto) 0.3 Neut # (Auto) 10.82 H Lymph # (Auto) 1.05 L Foard # (Auto) 0.64 H Eos # (Auto) 0.08 Baso # (Auto) 0.04 Immature Gran # (Auto) 0.03 PT 22.1 H INR 2.2 H APTT 40 H PTT Ratio 1.5 Sodium 138 Potassium 3.8 Chloride 105 Carbon Dioxide 28 Anion Gap 5 BUN 14 Creatinine 0.61 Est Cr Clr Drug Dosing Not Reportable eGFR 104.21 BUN/Creatinine Ratio 23.0 H Glucose 112 H Lactate 0.7 Calcium 9.1 Total Bilirubin 0.5 AST 16 ALT 18 Alkaline Phosphatase 71 Troponin I High Sens 4.7 Total Protein 6.9 Albumin 4.0 Globulin 2.9 Albumin/Globulin Ratio 1.4 Lipase 15 Procalcitonin < 0.02 Urine Color See Comment Urine Appearance Turbid A Urine pH Not Reportable Ur Specific [place] 1.010 Urine Protein Not Reportable Urine Glucose (UA) Not Reportable Urine Ketones Not Reportable Urine Blood Not Reportable Urine Nitrite Not Reportable Urine Bilirubin Not Reportable Urine Urobilinogen Not Reportable Ur Leukocyte Esterase Not Reportable Urine RBC >20 H Urine WBC >50 H Ur Epithelial Cells 3-5 H Urine Bacteria 3+ H Urine Comment Lyme Disease Screen Negative Diagnostic Findings Abdomen/Pelvis CT 06/30/25 14:24 CT OF THE ABDOMEN AND PELVIS WITHOUT CONTRAST CLINICAL HISTORY: Left lower quadrant abdominal pain. COMPARISON STUDY: CT of the abdomen and pelvis February 13, 2023. Pelvic ultrasound February 13, 2023. TECHNIQUE: Axial images of the abdomen and pelvis were obtained without IV contrast. Images were reviewed in the axial, sagittal, and coronal planes. Automated exposure control was utilized for the study. A dose lowering technique was utilized adhering to the principles of ALARA. FINDINGS: Visualized lung bases are unremarkable. No pneumatosis, free air or portal venous gas is present. Two calculi within the lower pole of the right kidney measure up to 6 mm. There are no right ureteral calculi. Moderate dilatation of the right renal pelvis and mild right calyceal dilatation is similar to prior CT. Mild to moderate dilatation left renal pelvis has increased since prior CT. There is also stranding adjacent to the left renal pelvis and left ureter with suspected urothelial thickening. A small amount of layering hyperdense material within the left renal pelvis is noted. There is no significant left-sided calyceal dilatation. There is an equivocal punctate proximal left ureteral calculus on image 209 of 401. There is mild bladder wall thickening with adjacent stranding. No evidence for a bowel obstruction. There is no biliary ductal dilatation status post cholecystectomy. Unenhanced images of the liver, spleen, adrenal glands and pancreas are unremarkable. Colonic diverticulosis. No evidence for acute diverticulitis. There is no evidence for acute appendicitis. There is no lymphadenopathy. No fluid collections are present. IMPRESSION: 1. Mild to moderate dilatation of the left renal pelvis which has increased since prior CT. Layering hyperdense material within the left renal pelvis could represent a small amount of hemorrhage or small layering calculi. Equivocal punctate proximal left ureteral calculus. Stranding adjacent to the left renal pelvis and left ureter which could be due to the ureteral calculus, a recently passed calculus or an infectious process. Mild bladder wall thickening with adjacent stranding which could be correlated with urinalysis. 2. Right nephrolithiasis. No significant change in right pelvicalyceal dilatation since prior CT. 3. Colonic diverticulosis. No evidence for acute diverticulitis. ACT 112: Negative or not required by law. Electronically signed by: Jose Manuel Hardy M.D. 06/30/2025 3:00 PM ECG Additional Comments: EKG - my reading - NSR, left axis deviation, no ST changes Code Status & VTE Plan Code Status full code PG Care Time/CCT Total # of Minutes Spent Total Time Spent with Patient: Total time spent is greater than 50% in coordination of care (as documented) at patient's floor/unit and/or counseling patient: Coding Level of Care Code 89893 INT INP/OBS CARE 3/75MIN Diagnoses Hematuria R31.9 Left flank pain R10.A2 UTI (urinary tract infection) N39.[address] of the abdomen R93.5 Rheumatoid arthritis M06.9 Fibromyalgia M79.7 Celiac disease K90.0 Hypothyroidism E03.9 Prediabetes R73.03 Chronic venous insufficiency I87.2 History of pulmonary embolism Z86.711 History of DVT (deep vein thrombosis) Z86.718 Morbid obesity with BMI of 50.0-59.9, adult E66.01; Z68.43 Tick bite of abdominal wall S30.861A; W57.XXXA
[2025-06-30] MEDS: DOXYCYCLINE HYCLATE 100 MG CAP PO STA (19:43)
--- NOTE | 2025-06-30 20:14 | Urology Consultation ---
Date of Consultation June 30, 2025 Assessment & Plan (1) Hematuria: Patient is being admitted on the hospitalist service. From a urologic perspective we recommend the following: The patient's hematuria and CT scan findings may be related to an underlying passed kidney stone or infectious process I discussed with the patient that if she has either of these 2 processes combined with the fact that she takes Coumadin this could explain the patient's hematuria Would recommend holding any antiplatelets and anticoagulants for the present time Would recommend following serial labs Has an underlying urinary tract infection has not been excluded the patient had been given Rocephin would recommend continuing this until urine culture results could be obtained and then treated accordingly Will continue to follow the patient for the present time clinically. At the present time she is hemodynamically stable and afebrile and nontoxic-appearing and therefore not feel an urgent urologic procedure is required We will empirically make the patient n.p.o. after midnight and should be reassessed the morning of 07/01/2025 and a determination will be made if patient will require cystoscopic intervention. History of Present Illness Reason for Consultation: Hematuria History of Present Illness This is a 59-year-old female who presented to the emergency department secondary to left flank pain that began this morning. The patient says that the pain also radiated to the front of her abdomen. She said she had nausea without vomiting. She denies any fevers but did have some shakes and chills. The patient says that she has no known history of previous kidney stones and to the best of her knowledge has never passed a kidney stone including today. She notes that over the past several days she feels as though she had had urinary frequency without dysuria or hematuria. She does report that upon arrival to the emergency department she had the urge to void and she had gross hematuria and she describes her urine as the color of "beet juice". Patient reports that she does take Coumadin for history of DVT and PE. She also notes that she does not follow regularly with a urologist. 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 Currently the patient notes that she continues to have some gross hematuria but she feels as though she is able to empty her bladder without difficulty. Since arrival to the hospital the patient has had labs and imaging which I independent reviewed. A CT scan of the abdomen pelvis showed the patient had mild to moderate dilatation of the left renal pelvis. There is some layering hyperdense material in the left renal pelvis that potentially was felt to represent small amount of hemorrhage or small layering kidney stones. There was an equivocal punctate left ureteral calculus noted proximally. There is also some stranding adjacent to the left renal pelvis and left ureter which is felt to potentially represent a ureteral calculus. A recently passed ureteral calculus or infectious process could not be excluded. Labs including CBC were white blood cell count was elevated 12.6. Hemoglobin, hematocrit, platelet count are normal. Chemistry profile showed sodium and potassium as well as the BUN and creatinine were normal. Coagulation studies showed an INR of 2.2. Urinalysis showed turbid urine with 3+ bacteria and greater than 50 white blood cells per high-power field. At the time my interview the patient noted that she was pain-free and she was resting comfortably in bed in no distress. Allergies Allergy/AdvReac Type Severity Reaction Status Date / Time Iodinated Contrast Media Allergy Severe RASH, SOB Verified 06/28/25 14:24 sulfamethoxazole Allergy Severe ANAPHALACTIC Verified 06/28/25 14:24 SHOCK trimethoprim Allergy Severe ANAPHALACTIC Verified 06/28/25 14:24 SHOCK codeine Allergy Intermediate HIVES; PT Verified 06/28/25 14:24 TOLERATES DILAUDID latex Allergy Mild RASH Verified 06/28/25 14:24 sumatriptan [From Imitrex] Allergy Mild scratchy Verified 06/28/25 14:24 throat lisinopril AdvReac Mild Cough Verified 06/28/25 14:24 tetanus toxoid, adsorbed AdvReac Unknown HARD LUMP Verified 06/28/25 14:24 AT INJECTION SITE losartan AdvReac Severe Dizziness Uncoded 06/28/25 14:24 Home Medications Medication Instructions Recorded Confirmed Type multivitamin 1 tab PO QAM 08/09/22 06/30/25 History potassium chloride 10 mEq 10 meq PO .every other day PRN 10/01/23 06/30/25 History capsule,extended release WATER RETENTION cholecalciferol (vitamin D3) 50 5,000 mcg (100 x 50 mcg (2,000 12/04/23 06/30/25 Rx mcg (2,000 unit) capsule unit)) PO DAILY #30 caps albuterol sulfate 2.5 mg/3 mL 2.5 mg (3 mL) inhalation QAM PRN 07/06/24 06/30/25 Rx (0.083 %) solution for nebulization Shortness Of Breath #90 mL albuterol sulfate 90 mcg/actuation 1 - 2 inh inhalation UD PRN 07/06/24 06/30/25 Rx aerosol inhaler (Ventolin HFA) Shortness Of Breath #8.5 grams hydroxychloroquine 200 mg tablet 400 mg PO DAILY 12/07/24 06/30/25 History (Plaquenil) furosemide 20 mg tablet 20 mg PO DAILY PRN Fluid Retention 12/23/24 06/30/25 Rx #90 tabs warfarin 5 mg tablet 5 mg PO DIRECTED 06/22/25 06/30/25 History warfarin 7.5 mg tablet 7.5 mg PO DIRECTED 06/22/25 06/30/25 History aspirin 81 mg tablet,delayed 81 mg PO DAILY #30 tabs 06/23/25 06/30/25 Rx release nifedipine 30 mg tablet,extended 30 mg PO QPM 06/28/25 06/30/25 History release 24 hr (Procardia XL) Patient History Medical History Dysphagia Neck mass Dysphonia Esophageal dilatation 11/04/24 Vertigo History of anesthesia reaction "Years ago felt like I couldn't breath when I woke up" History of COVID-19 09/2021, not hospitalized, [facility] [place] pcr test, shortness of breath, developed into pneumonia>resolved. Pneumonia due to COVID-19 virus 09/2021, not hospitalized, resolved. Lyme disease Surgical History S/P excision of lipoma (03/2022) L side neck Hx of colonoscopy Hx of endoscopic retrograde cholangiopancreatography Hx of laparoscopy H/O ovarian cystectomy S/P cholecystectomy Family History Mother Coronary heart disease Hypertension Father Diabetes Brother Diabetes Denies family history of Ovarian cancer Prostate cancer Myocardial infarction Breast cancer Lung cancer Colorectal cancer Social History Smoking Status: Never smoker Second Hand Exposure: No; Do You Dip or Chew Tobacco: No; Hx Alcohol Use: Yes Alcohol type: hard liquor Alcohol Intake Frequency: Monthly or Less Hx Substance Use: No Preferred Language: Icelandic Communication Ability: Effective Visual Impairment: Limited Hearing Ability: Normal Member Of [employer] Legislative [employer] Required: No Beliefs That Will Affect Care: None marital status: Single Current Living Situation: Significant Other Current Living Situation Comment: Lives with significant other. 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; Feels Safe at Home: Yes Childhood Exposure to Second-Hand Smoke: No Diet: regular Diet Comment: regular caffeine: No during the past year weight has: remained stable Dental Care, Regularly: No Physical Activity Frequency: Does not Exercise Seatbelt Use: sometimes Sunscreen Use: Yes Assistive Devices: Cane and Scooter/Electric Scooter Review of Systems Review of Systems: All systems reviewed & are unremarkable except as noted in HPI & below Physical Exam Constitutional: WD/WN, vitals as above Eyes: no conjunctival abnormality ENMT: Ears: no hearing impairment and no external ear abnormality Mouth: no oropharynx abnormality Neck: trachea midline Respiratory: normal respiratory effort; no respiratory distress and no labored breathing Cardiovascular: Rate/Rhythm: regular rate and regular rhythm Gastrointestinal (Abdomen): Abdomen is rotund and soft. Patient has little to no pain with palpation of the left side of her abdomen. There is no rebound tenderness or guarding. Musculoskeletal: No calf tenderness Skin: no rashes Neurologic: moves all extremities Psychiatric: A+Ox3, euthymic affect Genitourinary: No CVA tenderness with percussion bilaterally Results & Data Vital Signs (Past 12 Hours) Vital Signs Temp Pulse Pulse Resp BP BP Pulse Ox 06/30/25 19:06 80 06/30/25 19:00 80 16 142/87 H 96 06/30/25 17:00 78 16 171/97 H 94 06/30/25 15:26 90 20 135/94 97 06/30/25 13:05 36.6 C 78 18 167/87 H 100 O2 Del Method 06/30/25 19:06 06/30/25 19:00 Room Air 06/30/25 17:00 Room Air 06/30/25 15:26 Room Air 06/30/25 13:05 Room Air PG Care Time/CCT Total # of Minutes Spent Total Time Spent with Patient: Total time spent is greater than 50% in coordination of care (as documented) at patient's floor/unit and/or counseling patient: Coding Level of Care Code 21533 IN/OBS CONSULT LVL 5,80M Diagnoses Hematuria R31.9
[2025-06-30] MEDS ORDERED: ALBUTEROL 0.083% NEBU SOLN 3 ML VIAL INH PRN (21:06)
[2025-06-30] MEDS ORDERED: ALBUTEROL HFA 8 GM INHALER INH PRN (21:06)
[2025-06-30] MEDS: NIFEdipine EXTENDED REL 30 MG TABCR PO SCH (21:29)
[2025-06-30] MEDS: ACETAMINOPHEN 500 MG TAB PO PRN (21:30)
[2025-06-30] MEDS: SODIUM CHLORIDE 0.9% 1,000 ML IV SCH (21:47)
[2025-07-01] MEDS: ONDANSETRON INJ 2 MG/ML 2 ML VIAL IV PRN (03:56)
[2025-07-01] MEDS: MoRPHine SULFATE 2 MG/ML CARP IV PRN (03:56)
[2025-07-01] MEDS: KETOROLAC TROMETHAMINE 15 MG/ML VIAL IV ONE (04:23)
[2025-07-01] MEDS: HYDROmorphone INJ 0.5 MG/0.5 ML SYR IV STA ×2 (04:25→07:47)
[2025-07-01] MEDS: PHENAZOPYRIDINE HCL 100 MG TAB PO PRN (06:42)
[2025-07-01 07:06] LABS: Hematocrit (blood only) 38.9 % (37.0-47.0); Hemoglobin 12.4 g/dl (12.0-16.0); Mean Corpuscular Hemoglobin 31.4 pg (25.0-34.0); Mean Corpuscular Volume 98.5 fL (80.0-100.0); Platelet Count 225 K/uL (130-400); RDW Standard Deviation 47.2 fL (36.4-46.3); Red Blood Count 3.95 M/uL (4.20-5.40); White Blood Count 10.06 K/ul (4.8-10.8)
[2025-07-01 07:27] LABS: Anion Gap 5.0 (3-11); Blood Urea Nitrogen 9.0 mg/dl (6-23); Calcium 8.6 mg/dl (8.6-10.3); Carbon Dioxide 27.0 mmol/L (21-32); Chloride 107.0 mmol/L (98-107); Creatinine Clr Calc Pharmacy 129.0 ml/min; Glucose 105.0 mg/dl (70-99(Fasting)); Potassium 3.6 mmol/L (3.5-5.1); Sodium 139.0 mmol/L (136-145)
[2025-07-01 07:39] LABS: INR 2.3 (0.9-1.1); Prothrombin Time 23.6 Seconds (9.0-12.0)
[2025-07-01] MEDS: ONDANSETRON INJ 2 MG/ML 2 ML VIAL IV STA (07:43)
--- NOTE | 2025-07-01 09:55 | Urology Progress Note ---
<Statement entered by Phu Chairez MD - 07/01/25 12:31> Chart reviewed and discussed with ZEB plan reviewed and agree as written. Date of Service July 01, 2025 Assessment & Plan (1) Hematuria: Plan: Follow-up of hematuria Patient afebrile, hemodynamically stable Labs today reviewedcreatinine 0.63, WBC 10.06, hemoglobin 12.4 Urinalysis on arrival was suspicious for infection Urine culture prelim with E. coli Blood cultures pending She is voiding spontaneously, ongoing hematuria Anticoagulation on hold, ideally hold for about 5 days Continue with aspirin Recommend check post void residual bladder scan today, and then bladder scan as needed No acute surgical intervention planned today, patient can have diet Continue broad-spectrum antibiotics and narrow per sensitivity data when available Continue supportive care and pain management Recommend urine cytology, order placed Recommend outpatient follow-up with urology for hematuria work-up will follow, contact her service with any additional questions or concerns Admission and Anticipated Discharge Date Admission Date: June 30, 2025 Subjective Patient seen and examined at bedside this morning. She reports episode of nausea and vomiting this morning, now resolved. Continues to have intermittent left flank pain. Voiding spontaneously. Notes some discomfort of urethra after voiding. Continues to note hematuria. No fever or chills. Review of Systems Constitutional: as per Subjective / HPI Genitourinary: as per Subjective / HPI Physical Exam Constitutional: well developed and well nourished; no acute distress Respiratory: normal respiratory effort; no respiratory distress and no labored breathing Gastrointestinal (Abdomen): Inspection/Auscultation: abdomen normal to inspection Musculoskeletal: Head/Neck/Chest: normocephalic Neurologic: moves all extremities and awake Psychiatric: Orientation: alert and oriented x 3 Results & Data Vital Signs (Past 12 Hours) Vital Signs Temp Pulse Pulse Resp BP BP Pulse Ox 07/01/25 09:35 76 07/01/25 07:17 36.4 C L 92 H 18 163/89 H 93 07/01/25 03:26 36.3 C L 85 18 163/92 H 96 06/30/25 22:00 06/30/25 21:58 135/81 O2 Del Method 07/01/25 09:35 07/01/25 07:17 Room Air 07/01/25 03:26 Room Air 06/30/25 22:00 Room Air 06/30/25 21:58 PG Care Time/CCT Total # of Minutes Spent Total Time Spent with Patient: Total time spent is greater than 50% in coordination of care (as documented) at patient's floor/unit and/or counseling patient: Coding Level of Care Code 14531 SUB INP/OBS CARE 2/35MIN Diagnoses Hematuria R31.9 Hematuria type: unspecified type (1) Hematuria Hematuria type: unspecified type Qualified Code(s): R31.9 - Hematuria, unspecified
[2025-07-01] MEDS: ASPIRIN 81 MG ECTAB PO SCH (10:26)
[2025-07-01] MEDS: HYDROXYCHLOROQUINE SULFATE 200 MG TAB PO SCH (10:27)
[2025-07-01] MEDS: [UNRECOGNIZED DRUG - OTHER] PO SCH (10:27)
[2025-07-01] MEDS: MULTIVITAMIN TAB PO SCH (10:27)
--- NOTE | 2025-07-01 13:21 | Electrocardiogram Report ---
Test Reason : Blood Pressure : */* mmHG Vent. Rate : 91 BPM Atrial Rate : 91 BPM P-R Int : 174 ms QRS Dur : 80 ms QT Int : 374 ms P-R-T Axes : 23 -18 13 degrees QTcB Int : 460 ms Normal sinus rhythm Minimal voltage criteria for LVH, may be normal variant ( R in aVL ) Borderline ECG When compared with ECG of 22-Jun-2025 14:05, No significant change was found Confirmed by Ernesto Dixon ([id number]) on 07/01/2025 1:20:35 PM Referred By: REFERRED SELF Confirmed By: Ernesto Dixon
[2025-07-01] MEDS: MoRPHine SULFATE 4 MG/ML 1 ML CARP\\VIAL IV PRN (14:34)
[2025-07-01 14:52] VITALS: RESP 18
--- NOTE | 2025-07-01 15:47 | Hospitalist Progress Note ---
Date of Service July 01, 2025 Assessment & Plan (1) Hematuria: (2) Left flank pain: (3) UTI (urinary tract infection): (4) Abnormal CT of the abdomen: (5) Rheumatoid arthritis: (6) Fibromyalgia: (7) Celiac disease: (8) Hypothyroidism: (9) Prediabetes: (10) Chronic venous insufficiency: (11) History of pulmonary embolism: (12) History of DVT (deep vein thrombosis): (13) Morbid obesity with BMI of 50.0-59.9, adult: (14) Tick bite of abdominal wall: Plan Pleasant 59yo female with HTN, RA, h/o DVT & PE on chronic coumadin, hypothyroidism, and recent hospitalization from 06/22 to 06/23 for chest pain thought 2nd to uncontrolled HTN. Presented with severe left flank pain and left sided abdominal pain followed by gross hematuria. CT abd/pelvis with abnormal left kidney, renal pelvis, and ureter. Admission U/a suggestive of UTI. #left flank pain, left-sided abdominal pain - -differential -- recently passed kidney stone with bleeding/hematuria vs calyceal rupture with bleeding vs renal cyst rupture with bleeding vs UTI contributing to hematuria vs combo of factors vs other -overall improved today although she did have a rough morning with pain/nausea -cont IV rocephin for e.coli UTI -cont to HOLD coumadin -per urology ok to cont aspirin -no plans for cystoscopy at this time; she can eat -appreciate urology assistance #UTI - -2nd ecoli, sensitivities pending -cont IV rocephin, day #2 today #gross hematuria - -CBC with mild drop in H/H -repeat CBC am -see discussion above -see differential above -cont to HOLD coumadin -INR am #prior h/o DVT & PE on chronic coumadin - -holding coumadin due to gross hematuria #morbid obesity BMI 54 #celiac disease - -gluten free diet #rheumatoid arthritis - -continue plaquenil #left calf pain/ecchymoses - -varicose vein that ruptured? -coleman cyst of left knee that ruptured? -other? -symptoms improved but still having pain thus obtain CT tib-fib and CT L knee -consider heat #HTN - -cont nifedipine xl #tick bite, abdominal wall - tick removed 1-2 days prior to admission - -doxycycline 200mg po x 1 for prophylaxis #pre-DM - -most recent a1c 5.9% -BSGs prn pt's updated at bedside 06/30 appreciate urology assistance will obtain PT consult in am Admission and Anticipated Discharge Date Admission Date: June 30, 2025 Subjective had gross hematuria through the night and this am, but urine now clearing this afternoon passed a rather large clot during a void pain seemingly better after passing the clot ongoing L flank and L sided abd pain early this am had severe abd pain and nausea needed extra zofran and a dose of IV dilaudid - symptoms settled down with such continues with mild pain over the left lateral calf region Review of Systems Review of Systems: gen - no fevers; overall feels better today cv - no chest pain pulm - occasional dyspnea - some dysuria Physical Exam Physical Exam: gen - NAD, pleasant, laying comfortably in bed, obese HENT - MMM neck - no JVD heart - RRR, s1 s2, no murmur lungs - minimal dry rales b/l bases otherwise CTA b/l abd - soft, mild L flank tenderness and mild LLQ tenderness to palpation, BS+, no HSM skin - varicose veins b/l legs; ecchymoses left lateral calf region - unchanged Results & Data Results & Data Vital Signs (Past 12 Hours) Vital Signs Temp Pulse Pulse Resp BP Pulse Ox O2 Del Method 07/01/25 14:51 36.4 C L 85 18 142/79 H 97 Room Air 07/01/25 14:05 78 07/01/25 11:02 36.4 C L 93 H 20 156/93 H 95 Room Air 07/01/25 09:35 76 07/01/25 07:17 36.4 C L 92 H 18 163/89 H 93 Room Air Laboratory Results Laboratory Results - last 24 hr 07/01/25 06:23 WBC 10.06 RBC 3.95 L Hgb 12.4 Hct 38.9 MCV 98.5 MCH 31.4 MCHC 31.9 L RDW Std Deviation 47.2 H RDW Coeff of Ramon 13.0 Plt Count 225 MPV 9.8 PT 23.6 H INR 2.3 H Sodium 139 Potassium 3.6 Chloride 107 Carbon Dioxide 27 Anion Gap 5 BUN 9 Creatinine 0.63 Est Cr Clr Drug Dosing 129.0 eGFR 103.40 BUN/Creatinine Ratio 14.3 Glucose 105 H Calcium 8.6 Diagnostic Findings Microbiology 06/30/25 16:23 Blood Aerobic Blood Culture - Preliminary No growth in Aerobic bottle after 24 hours. 06/30/25 16:23 Blood Anaerobic Blood Culture - Preliminary No growth in Anaerobic bottle after 24 hours. 06/30/25 16:13 Blood Aerobic Blood Culture - Preliminary No growth in Aerobic bottle after 24 hours. 06/30/25 16:13 Blood Anaerobic Blood Culture - Preliminary No growth in Anaerobic bottle after 24 hours. 06/30/25 Unknown Urine,Clean Catch Urine Culture - Preliminary Escherichia coli PG Care Time/CCT Total # of Minutes Spent Total Time Spent with Patient: Total time spent is greater than 50% in coordination of care (as documented) at patient's floor/unit and/or counseling patient: Coding Level of Care Code 28463 SUB INP/OBS CARE 3/50MIN Diagnoses Hematuria R31.9 Left flank pain R10.A2 UTI (urinary tract infection) N39.[address] of the abdomen R93.5 Rheumatoid arthritis M06.9 Fibromyalgia M79.7 Celiac disease K90.0 Hypothyroidism E03.9 Prediabetes R73.03 Chronic venous insufficiency I87.2 History of pulmonary embolism Z86.711 History of DVT (deep vein thrombosis) Z86.718 Morbid obesity with BMI of 50.0-59.9, adult E66.01; Z68.43 Tick bite of abdominal wall S30.861A; W57.XXXA
[2025-07-01] MEDS: cefTRIAXone SODIUM 2,000 MG/50 ML BAG IV SCH (17:45)
[2025-07-01] MEDS ORDERED: HYDROmorphone INJ 0.5 MG/0.5 ML SYR IV PRN (20:40)
[2025-07-02 08:33] LABS: Hematocrit (blood only) 40.6 % (37.0-47.0); Hemoglobin 13.6 g/dl (12.0-16.0); Mean Corpuscular Hemoglobin 33.2 pg (25.0-34.0); Mean Corpuscular Volume 99.0 fL (80.0-100.0); Platelet Count 248 K/uL (130-400); RDW Standard Deviation 47.8 fL (36.4-46.3); Red Blood Count 4.10 M/uL (4.20-5.40); White Blood Count 6.42 K/ul (4.8-10.8)
[2025-07-02 08:58] LABS: Anion Gap 7.0 (3-11); Blood Urea Nitrogen 11.0 mg/dl (6-23); Calcium 8.9 mg/dl (8.6-10.3); Carbon Dioxide 27.0 mmol/L (21-32); Chloride 104.0 mmol/L (98-107); Creatinine Clr Calc Pharmacy 128.9 ml/min; Glucose 82.0 mg/dl (70-99(Fasting)); Potassium 3.8 mmol/L (3.5-5.1); Sodium 138.0 mmol/L (136-145)
[2025-07-02] MEDS: SENNA 8.6 MG TAB PO SCH (09:06)
[2025-07-02 09:07] LABS: INR 1.9 (0.9-1.1); Prothrombin Time 19.4 Seconds (9.0-12.0)
[2025-07-02] MEDS: POLYETHYLENE (MIRALAX) 17 GM PACK PO SCH (09:07)
--- NOTE | 2025-07-02 12:06 | CT Scan Report ---
Technique: Axial computed tomography images were obtained of the left knee without intravenous contrast. Sagittal and coronal reconstructions were obtained Comparison is made to the radiographs dated 03/04/2025 Findings: No fracture is identified. There is lateral tilting and lateral subluxation of the patella. There is joint space narrowing in the medial compartment. There are osteophytes in all 3 compartments. No focal osseous lesion is evident The visualized musculature appears unremarkable. There is a small knee effusion. There is a Goncalves's cyst that measures 18 x 9 mm in cross-section. No foreign body is evident Impression: 1. Lateral tilting and lateral subluxation of the patella, concerning for patellar tracking abnormality 2. Small knee effusion with a Goncalves's cyst 3. Medial compartment predominant osteoarthritis Electronically signed by Hammad Brewer 07-02-2025 12:05 PM
--- NOTE | 2025-07-02 12:10 | CT Scan Report ---
Technique: Axial computed tomography images were obtained of the left lower leg without intravenous contrast. Sagittal and coronal reconstructions were obtained Comparison is made to the radiographs dated 03/04/2025 Findings: No fracture is identified. There is lateral tilting and lateral subluxation of the patella. There is joint space narrowing in the medial compartment of the left knee. There are osteophytes in all 3 compartments of the left knee. There is mild ankle joint osteoarthritis. No focal osseous lesion is evident. There is a plantar calcaneal spur The visualized musculature appears unremarkable. There is a left knee effusion with a Goncalves's cyst. There is diffuse subcutaneous edema of the calf. No foreign body is evident. Varicose veins are present Impression: 1. Lateral tilting and lateral subluxation of the patella, concerning for patellar tracking abnormality 2. Small knee effusion with a Goncalves's cyst 3. Osteoarthritis 4. Calcaneal spur 5. Subcutaneous edema of the left calf. This is nonspecific in nature but could be due to cellulitis ACT 112: Positive. There are findings on this exam that require communication between the performing entity and the patient following Patient Test Result Information Act ([place] ACT 112) guidelines. Electronically signed by Hammad Brewer 07-02-2025 12:09 PM
[2025-07-02] MEDS: FUROSEMIDE 20 MG TAB PO ONE (18:18)
[2025-07-02] MEDS: POTASSIUM CHLORIDE CRTAB 20 MEQ TABCR PO STA (18:20)
--- NOTE | 2025-07-02 20:31 | Hospitalist Progress Note ---
Date of Service July 02, 2025 Assessment & Plan (1) Hematuria: (2) Left flank pain: (3) UTI (urinary tract infection): (4) Abnormal CT of the abdomen: (5) Rheumatoid arthritis: (6) Fibromyalgia: (7) Celiac disease: (8) Hypothyroidism: (9) Prediabetes: (10) Chronic venous insufficiency: (11) History of pulmonary embolism: (12) History of DVT (deep vein thrombosis): (13) Morbid obesity with BMI of 50.0-59.9, adult: (14) Tick bite of abdominal wall: Plan Pleasant 59yo female with HTN, RA, h/o DVT & PE on chronic coumadin, hypothyroidism, and recent hospitalization from 06/22 to 06/23 for chest pain thought 2nd to uncontrolled HTN. Presented with severe left flank pain and left sided abdominal pain followed by gross hematuria. CT abd/pelvis with abnormal left kidney, renal pelvis, and ureter. Admission U/a suggestive of UTI. #left flank pain, left-sided abdominal pain - -differential -- recently passed kidney stone with bleeding/hematuria vs calyceal rupture with bleeding vs renal cyst rupture with bleeding vs UTI contributing to hematuria vs combo of factors vs other -pain resolved, hematuria resolved -HOLD coumadin 1 more day, then likely resume on 07/03 -per urology ok to cont aspirin -no plans for cystoscopy at this time -appreciate urology assistance -urine cytology still pending #UTI - -2nd ecoli, pansens -s/p IV rocephin - change to PO cefuroxime today -would Rx for 10 days IV/PO #gross hematuria - -resolved -see discussion above -see differential above -cont to HOLD coumadin -INR am #prior h/o DVT & PE on chronic coumadin - -holding coumadin due to gross hematuria #morbid obesity BMI 54 #celiac disease - -gluten free diet #rheumatoid arthritis - -continue plaquenil #left calf pain/ecchymoses - -varicose vein that ruptured? -goncalves cyst of left knee that ruptured? -other? -symptoms improved but still having pain thus obtained CT tib-fib and CT L knee -does have Goncalves cyst on L as well as extensive OA changes of L knee with mild effusion; ?patella abnormality -no hematoma -no fractures -no abscess -had on-call ortho look at the films and in particular the L patella - CT c/w advanced OA, nothing to do for the knee/patella, ambulate as tolerated -to be complete will obtain doppler of the LLE but my suspicion for DVT is VERY VERY LOW as INR was therapeutic upon admission (was <2 in the recent past but this was transient) #HTN - -cont nifedipine xl #tick bite, abdominal wall - tick removed 1-2 days prior to admission - -doxycycline 200mg po x 1 for prophylaxis #pre-DM - -most recent a1c 5.9% -BSGs prn pt's updated at bedside 06/30 and again today appreciate urology assistance d/c home 07/03 Admission and Anticipated Discharge Date Admission Date: June 30, 2025 Subjective urine continues to be clear no dysuria scant L flank discomfort no abd pain no nausea/emesis eating well ambulating w/o difficulty continues with edema of left leg and mild discomfort related to the edema but no worse than prior Review of Systems Review of Systems: gen - no fevers or chills cv - no cp, no orthopnea pulm - no dyspnea or CARRILLO Physical Exam Physical Exam: gen - NAD, pleasant, laying comfortably in bed, obese - looks well HENT - MMM neck - no JVD heart - RRR, s1 s2, no murmur lungs - CTA b/l abd - soft, NT, ND, BS+, no HSM skin - varicose veins b/l legs; ecchymoses left lateral calf region - nearly resolved; hyperpigmentation of right distal LE/ricci ext - trace edema right ricci/foot; 2-3+ edema left leg from foot to knee; pulses b/l feet 2+ musculo - OA changes b/l knees with crepitus Results & Data Results & Data Vital Signs (Past 12 Hours) Vital Signs Temp Pulse Pulse Resp BP Pulse Ox O2 Del Method 07/02/25 19:16 36.7 C 82 18 138/81 94 Room Air 07/02/25 15:26 79 07/02/25 14:56 36.5 C 77 18 141/78 H 98 Room Air 07/02/25 11:24 36.3 C L 76 18 155/93 H 94 Room Air Laboratory Results Laboratory Results - last 48 hr 07/02/25 07:55 WBC 6.42 RBC 4.10 L Hgb 13.6 Hct 40.6 MCV 99.0 MCH 33.2 MCHC 33.5 RDW Std Deviation 47.8 H RDW Coeff of Ramon 13.2 Plt Count 248 MPV 9.6 PT 19.4 H INR 1.9 H Sodium 138 Potassium 3.8 Chloride 104 Carbon Dioxide 27 Anion Gap 7 BUN 11 Creatinine 0.63 Est Cr Clr Drug Dosing 128.9 eGFR 103.40 BUN/Creatinine Ratio 17.5 Glucose 82 Calcium 8.9 PG Care Time/CCT Total # of Minutes Spent Total Time Spent with Patient: Total time spent is greater than 50% in coordination of care (as documented) at patient's floor/unit and/or counseling patient: Coding Level of Care Code 36461 SUB INP/OBS CARE 3/50MIN Diagnoses Hematuria R31.9 Left flank pain R10.A2 UTI (urinary tract infection) N39.[address] of the abdomen R93.5 Rheumatoid arthritis M06.9 Fibromyalgia M79.7 Celiac disease K90.0 Hypothyroidism E03.9 Prediabetes R73.03 Chronic venous insufficiency I87.2 History of pulmonary embolism Z86.711 History of DVT (deep vein thrombosis) Z86.718 Morbid obesity with BMI of 50.0-59.9, adult E66.01; Z68.43 Tick bite of abdominal wall S30.861A; W57.XXXA
--- NOTE | 2025-07-02 23:49 | Ultrasound Report ---
Exam(s): US VENOUS LEFT LOWER EXTREMITY EXAM: US Duplex Left Lower Extremity Veins CLINICAL HISTORY: Reason for exam: recent edema/pain L calf region. TECHNIQUE: Real-time duplex ultrasound scan of the left lower extremity veins integrating B-mode two-dimensional vascular structure, Doppler spectral analysis, color flow Doppler imaging and compression. COMPARISON: No relevant prior studies available. FINDINGS: Exam is limited. Deep veins: No DVT in the visualized common femoral, femoral, proximal deep femoral or popliteal veins. The veins demonstrate normal color flow, are normally compressible, with normal phasic flow and/or augmentation response. Superficial veins: No thrombus in the visualized great saphenous vein. Soft tissues: No acute findings. No popliteal cyst. IMPRESSION: No ultrasound evidence of deep venous thrombosis in left lower extremity.. Electronically signed by: Suhas Damon MD 07/02/25 23:48 PM
[2025-07-03 07:22] LABS: INR 1.3 (0.9-1.1); Prothrombin Time 13.2 Seconds (9.0-12.0)
[2025-07-03] MEDS: FUROSEMIDE 20 MG TAB PO SCH (10:01)
[2025-07-03] MEDS: POTASSIUM CHLORIDE CRTAB 20 MEQ TABCR PO STA (10:01)
[2025-07-03 11:08] VITALS: PULSE 81; TEMP 97.5; O2SAT 94
[2025-07-03 11:47] VITALS: BP 135/81
--- NOTE | 2025-07-03 12:08 | Discharge Summary ---
Discharge Summary Date of Service July 03, 2025 Principal Dx & Hospital Course #1 = Principal Diagnosis (1) Hematuria: (2) Left flank pain: (3) UTI (urinary tract infection): (4) Abnormal CT of the abdomen: (5) Rheumatoid arthritis: (6) Fibromyalgia: (7) Celiac disease: (8) Hypothyroidism: (9) Prediabetes: (10) Chronic venous insufficiency: (11) History of pulmonary embolism: (12) History of DVT (deep vein thrombosis): (13) Morbid obesity with BMI of 50.0-59.9, adult: (14) Tick bite of abdominal wall: Plan Pleasant 59yo female with HTN, RA, h/o DVT & PE on chronic coumadin, hypothyroidism, and recent hospitalization from 06/22 to 06/23 for chest pain thought 2nd to uncontrolled HTN. Presented with severe left flank pain and left sided abdominal pain followed by gross hematuria. CT abd/pelvis with abnormal left kidney, renal pelvis, and ureter. Admission U/a suggestive of UTI. #left flank pain, left-sided abdominal pain - -differential -- recently passed kidney stone with bleeding/hematuria vs calyceal rupture with bleeding vs renal cyst rupture with bleeding vs UTI contributing to hematuria vs combo of factors vs other -pain resolved, hematuria resolved -HOLD coumadin 1 more day, then likely resume on 07/03 -per urology ok to cont aspirin -no plans for cystoscopy at this time -appreciate urology assistance -urine cytology still pending #UTI - -2nd ecoli, pansens -s/p IV rocephin - change to PO cefuroxime today -would Rx for 10 days IV/PO #gross hematuria - -resolved -see discussion above -see differential above -cont to HOLD coumadin -INR am #prior h/o DVT & PE on chronic coumadin - -holding coumadin due to gross hematuria #morbid obesity BMI 54 #celiac disease - -gluten free diet #rheumatoid arthritis - -continue plaquenil #left calf pain/ecchymoses - -varicose vein that ruptured? -goncalves cyst of left knee that ruptured? -other? -symptoms improved but still having pain thus obtained CT tib-fib and CT L knee -does have Goncalves cyst on L as well as extensive OA changes of L knee with mild effusion; ?patella abnormality -no hematoma -no fractures -no abscess -had on-call ortho look at the films and in particular the L patella - CT c/w advanced OA, nothing to do for the knee/patella, ambulate as tolerated -to be complete will obtain doppler of the LLE but my suspicion for DVT is VERY VERY LOW as INR was therapeutic upon admission (was <2 in the recent past but t his was transient) #HTN - -cont nifedipine xl #tick bite, abdominal wall - tick removed 1-2 days prior to admission - -doxycycline 200mg po x 1 for prophylaxis #pre-DM - -most recent a1c 5.9% -BSGs prn pt's updated at bedside 06/30 and again today appreciate urology assistance d/c home 07/03 Admission HPI Per Admitting Provider Binh 59yo female with HTN, RA, h/o DVT / PE on chronic coumadin, hypothyroidism, and recent hospitalization from 06/22 to 06/23 for chest pain thought 2nd to uncontrolled HTN. Following her discharge she was doing ok until early this week when she developed pain in the left lateral calf. This pain lasted for 2-3 days and has subsided. She subsequently developed ecchymosis in the area of previous pain. Then, early this am, she developed right upper back pain. This lasted about an hour then self-resolved. During that time she had mild dyspnea but no chest pain. Once the back pain subsided she then developed left-sided lower abdominal pain. The pain then traveled into the left flank, and also traveled into the region of the left pelvis/bladder. The pain worsened, and she developed severe nausea. No emesis. No shakir dysuria, but her urine flow simply "doesn't feel right." Due to the pain persisting and the nausea she finally came to the ER for evaluation. After arrival she developed gross hematuria. No fevers, but having sweats/feeling cold. Discharge Exam gen - NAD, pleasant, laying comfortably in bed, obese - looks well HENT - MMM neck - no JVD heart - RRR, s1 s2, no murmur lungs - CTA b/l abd - soft, NT, ND, BS+, no HSM skin - varicose veins b/l legs; ecchymoses left lateral calf region - nearly resolved; hyperpigmentation of right distal LE/ricci ext - trace edema right ricci/foot; 2-3+ edema left leg from foot to knee; pulses b/l feet 2+ musculo - OA changes b/l knees with crepitus Discharge Plan Discharge Items Patient Disposition: Home - Self-Care Reason For Visit: GROSS HEMATURIA, UTI, ABNORMAL CT OF L KIDNEY Discharge Diagnosis: 1. hematuria (blood in urine) - likely multiple causes - resolved 2. urinary tract infection - resolving 3. abnormal CT scan of left kidney - due to passed kidney stone? [facility] follow-up needed 4. recent edema and bruising of left leg - improved; doppler ultrasound negative for DVT blood clot; CT scans without hematoma, infection, or broken bones 5. severe arthritis of both knees 6. high blood pressure 7. recent tick bite - prophylactic doxycycline antibiotic given Condition on Discharge: Good Activity: As commented below Activity Comment: gradually increase activities as tolerated Non-emergency contact: Primary Care Provider, Specialist and Urologist Call non-emergency contact if: you have any medication questions, your symptoms worsen, your pain is not controlled and you have a fever Follow-up/Referrals: Jesusita Clinton DO [Primary Care Provider] - (see Dr Clinton within 1 week) Quique Bowen DO [Physician] - (1-2 weeks - follow-up for recent hematuria and abnormal appearing kidney on CT scan ) Thomas Herrera MD [Physician] - (you can follow-up with [facility] for your tinnitus (ringing in the ears)) Kirt Larose MD [Surgeon] - (please call Dr Larose's office tomorrow on 07/04 to schedule a coumadin visit for later this week) Diet: Gluten Free Addtl Attending Provider Instructions: Ms Escamilla, You were hospitalized due to left sided flank & abdominal pain along with blood in your urine (hematuria). CT scan of the abdomen showed abnormalities in and around the left kidney. It is possible that you had passed a kidney stone causing the blood in the urine. You also had a urinary tract infection and that, too, can cause blood in the u rine along with pain. With holding your coumadin and treating the infection the pain & blood resolved. You were seen by [facility] and they would like to see you in clinic in the next couple of weeks to discuss potentially doing other tests. In addition to the above you had been having troubles with swelling and bruising of the left lower leg. Doppler ultrasound did not show a DVT blood clot. CT scan did not show broken bones, a hematoma, or other abnormalities that would require intervention. I am uncertain what caused the localized swelling/bruising - perhaps a Goncalves's cyst had ruptured behind the left knee? Perhaps a varicose vein bled? Either way the leg is doing better. Recommendations - 1. antibiotics - -cefuroxime 500mg twice daily x 7 days, first dose tonight -side effects - diarrhea; the antibiotic can also interact with your coumadin leading to a higher than usual INR 2. tomorrow and Friday take furosemide 20mg each morning, then after that use as needed. Be sure to take the potassium with it each morning. 3. you can resume your coumadin (warfarin) TONIGHT, 07/03/25. We had talked about taking your typical Friday dose (7.5mg) today, but in light of the antibiotics let's just plan to have you resume 5mg tonight and continue to follow your usual schedule. 4. call the coumadin clinic at [facility] to schedule an INR later this week. Be sure to tell them the following - -INR on 07/03 is 1.3 -coumadin had been on hold while here, then resumed on 07/03 at 5mg -you are on cefuroxime antibiotic 5. follow-up with urology within 2 weeks 6. follow-up with ENT for your ringing in the ears as needed Return to [facility] if - -you have fevers over 100 degrees -you have severe diarrhea (3 or more liquid stools in 24 hours) -you have recurrent abdominal pain, back pain or flank pain -you have significant blood in the urine again -any other concerns It was our pleasure to care for you! -Jose E Hurley Pending Studies at Discharge: Yes Studies:: Urine cytology Stand-Alone Forms: My [facility] [email or web address], Smoking Cessation Medications and DC Order Prescriptions: New cefuroxime axetil 500 mg Tablet 500 mg PO BID 7 Days Qty: 14 0RF Continued cholecalciferol (vitamin D3) 50 mcg (2,000 unit) capsule 5,000 mcg PO DAILY Qty: 30 0RF albuterol sulfate [Ventolin HFA] 90 mcg/actuation HFA aerosol inhaler 1 - 2 inh inhalation UD PRN (Reason: Shortness Of Breath) Qty: 8.5 1RF Rx Instructions: inhale 1 to 2 puffs every 4 to 6 hours as needed albuterol sulfate 2.5 mg /3 mL (0.083 %) solution for nebulization 2.5 mg inhalation QAM PRN (Reason: Shortness Of Breath) Qty: 90 1RF furosemide 20 mg tablet 20 mg PO DAILY PRN (Reason: Fluid Retention) Qty: 90 3RF nifedipine [Procardia XL] 30 mg tablet extended release 24hr 30 mg PO QPM hydroxychloroquine [Plaquenil] 200 mg tablet 400 mg PO DAILY multivitamin Tablet 1 tab PO QAM warfarin 7.5 mg Tablet 7.5 mg PO DIRECTED Rx Instructions: TAKES ON WEDNESDAYS AND SATURDAYS warfarin 5 mg tablet 5 mg PO DIRECTED Rx Instructions: TAKE 5 MG ON FRI, FRI, , FRI, SUN aspirin 81 mg Tablet,Delayed Release (Dr/Ec) 81 mg PO DAILY Qty: 30 0RF Changed potassium chloride 10 mEq capsule, extended release 10 meq PO DAILY PRN (Reason: WATER RETENTION) Qty: 0 0RF Rx Instructions: please take the potassium supplement when you take furosemide diuretic Discharge Orders: Discharge Order (Routine); Ordered 07/03/25 Ordered By: Jose E Valles/Other Patient Handouts: What is Hematuria? Admission Data Admit Date/Time: 06/30/25 19:12 Attending Provider: Jose E Hurley Admit Provider: Jose E Hurley Primary Care Provider: Jesusita Clinton Other Providers: Quique Bowen; Jose E Hurley Other Interventions: Discharge Summary Assessment (RN) Last Done: 07/03/25 11:46 Hospital Stay Data Consultations 06/30/25 18:26 ED Decision to Admit Stat 06/30/25 21:06 Consult Urology Routine Diagnostic Imagining Performed 06/30/25 14:24 CT abd pelvis wo con Stat 07/01/25 15:46 CT knee LT wo con Routine CT tib/fib LT wo con Routine 07/02/25 17:56 US venous doppler LE LT Routine Pending Results Patient Have Any Pending Studies at Discharge: Yes Discharge Instructions Given to Patient (Per Discharging Provider) Ms Escamilla, You were hospitalized due to left sided flank & abdominal pain along with blood in your urine (hematuria). CT scan of the abdomen showed abnormalities in and around the left kidney. It is possible that you had passed a kidney stone causing the blood in the urine. You also had a urinary tract infection and that, too, can cause blood in the urine along with pain. With holding your coumadin and treating the infection the pain & blood resolved. You were seen by [facility] and they would like to see you in clinic in the next couple of weeks to discuss potentially doing other tests. In addition to the above you had been having troubles with swelling and bruising of the left lower leg. Doppler ultrasound did not show a DVT blood clot. CT scan did not show broken bones, a hematoma, or other abnormalities that would require intervention. I am uncertain what caused the localized swelling/bruising - perhaps a Goncalves's cyst had ruptured behind the left knee? Perhaps a varicose vein bled? Either way the leg is doing better. Recommendations - 1. antibiotics - -cefuroxime 500mg twice daily x 7 days, first dose tonight -side effects - diarrhea; the antibiotic can also interact with your coumadin leading to a higher than usual INR 2. tomorrow and Friday take furosemide 20mg each morning, then after that use as needed. Be sure to take the potassium with it each morning. 3. you can resume your coumadin (warfarin) TONIGHT, 07/03/25. We had talked about taking your typical Friday dose (7.5mg) today, but in light of the antibiotics let's just plan to have you resume 5mg tonight and continue to follow your usual schedule. 4. call the coumadin clinic at [facility] to schedule an INR later this week. Be sure to tell them the following - -INR on 07/03 is 1.3 -coumadin had been on hold while here, then resumed on 07/03 at 5mg -you are on cefuroxime antibiotic 5. follow-up with urology within 2 weeks 6. follow-up with ENT for your ringing in the ears as needed Return to [facility] if - -you have fevers over 100 degrees -you have severe diarrhea (3 or more liquid stools in 24 hours) -you have recurrent abdominal pain, back pain or flank pain -you have significant blood in the urine again -any other concerns It was our pleasure to care for you! -Jose E Hurley Coding Diagnoses Hematuria R31.9 Left flank pain R10.A2 UTI (urinary tract infection) N39.[address] of the abdomen R93.5 Rheumatoid arthritis M06.9 Fibromyalgia M79.7 Celiac disease K90.0 Hypothyroidism E03.9 Prediabetes R73.03 Chronic venous insufficiency I87.2 History of pulmonary embolism Z86.711 History of DVT (deep vein thrombosis) Z86.718 Morbid obesity with BMI of 50.0-59.9, adult E66.01; Z68.43 Tick bite of abdominal wall S30.861A; W57.XXXA
== END 2025-07-03 12:55 | disposition home or self-care (01) | DRG 690 ==
LOC: ED 13:01 → 2S 19:12